=== PATIENT | female | born 1975 | race Caucasian/White ===

== ENCOUNTER → 2017-07-10 13:49 | Emergency (ER) | payer SELFPAY | END | disposition left against medical advice (07) | LOC: ED 13:49 | DX: R42 Dizziness and giddiness (principal) ==

== ENCOUNTER 2017-10-25 20:17 | Emergency (ER) | payer BC ==
[2017-10-25 20:39] VITALS: BP 115/73
[2017-10-25] MEDS ORDERED: Cephalexin CAP* 500 MG PO ONE ×2 (20:57)
--- NOTE | 2017-10-25 21:00 | UC ---
Breast Complaint - HPI Summary HPI Summary: 42 yo female with right breast pain and swelling that started today currently on period and not breast feeding recently treated for UTI some mild back pain and nausea no UTI symptoms currently no chills - History of Current Complaint Hx Obtained From: Patient Breast Chief Complaint: Pain, Right Onset/Duration: Started Hours Ago Timing: Constant Breast Pain Radiates To: Right, Axilla Breast Pain Aggravating Factors: Palpation Breast Pain Alleviating Factors: Heat Breast Associated Signs/Symptoms: Redness, Warmth - Allergy/Home Medications Allergies/Adverse Reactions: Allergies Allergy/AdvReac Type Severity Reaction Status Date / Time latex Allergy Rash Verified 10/25/17 20:51 Sulfa (Sulfonamide Allergy Rash Verified 10/25/17 20:51 Antibiotics) Home Medications: Home Medications Aspirin [Aspirin Childrens 81 MG] 81 mg PO DAILY 10/25/17 [History Confirmed ] PMH/Surg Hx/FS Hx/Imm Hx Previously Healthy: Yes - mastitis in past - Surgical History Surgical History: None - Family History Known Family History: Positive: Hypertension - Social History Alcohol Use: Occasionally Substance Use Type: None Smoking Status (MU): Former Smoker Review of Systems Constitutional: Negative Skin: Negative Eyes: Negative ENT: Negative Respiratory: Negative Cardiovascular: Negative Gastrointestinal: Negative Genitourinary: Negative Motor: Negative Neurovascular: Negative Musculoskeletal: Negative Neurological: Negative Psychological: Negative Is Patient Immunocompromised?: No All Other Systems Reviewed And Are Negative: Yes Physical Exam Triage Information Reviewed: Yes Appearance: Well-Appearing, No Pain Distress, Well-Nourished Vital Signs: Initial Vital Signs Temp 98.6 F 10/25/17 20:31 Pulse 83 10/25/17 20:31 Resp 18 10/25/17 20:31 BP 115/73 10/25/17 20:31 Pulse Ox 97 10/25/17 20:31 Vital Signs Reviewed: Yes Eyes: Positive: Conjunctiva Clear ENT: Positive: Hearing grossly normal. Negative: Nasal congestion, Nasal drainage, Trismus, Muffled voice, Hoarse voice Dental Exam: Normal Neck: Positive: Supple, Nontender, No Lymphadenopathy Respiratory: Positive: Lungs clear, Normal breath sounds, No respiratory distress, No accessory muscle use Cardiovascular: Positive: RRR, No Murmur Abdomen Description: Positive: Nontender, No Organomegaly. Negative: CVA Tenderness (R), CVA Tenderness (L) Bowel Sounds: Positive: Present Musculoskeletal: Positive: ROM Intact, No Edema Neurological: Positive: Alert Psychological Exam: Normal Skin Exam: Other - see image Breast Pain Course/Dx - Differential Diagnoses Differential Diagnosis/HQI/PQRI: Mastitis - Diagnoses Provider Diagnoses: Mastitis in female Discharge - Sign-Out/Discharge Documenting (check all that apply): Discharge/Admit/Transfer - Discharge Plan Condition: Stable Disposition: HOME Prescriptions: Cephalexin CAP* [Keflex CAP*] 500 mg PO QID #28 cap Patient Education Materials: Mastitis (ED) Referrals: Delia Severino MD [Primary Care Provider] - 2 Days Additional Instructions: RECHECK FOR NEW OR WORSENING SYMPTOMS HEAT ANY CONCERNS OF AN ABSCESS (BOIL) ...get rechecked - Billing Disposition and Condition Condition: STABLE Disposition: HOME Images Front/Back of Body, Lg (Upson): 1 - red/indurated, no nipple d/c, not flutuant, no axillary adenopathy
== END 2017-10-25 21:15 | disposition home or self-care (01) ==
LOC: UCEAST 20:17
DX: N61.0 Mastitis without abscess (principal); M54.9 Dorsalgia, unspecified; R11.0 Nausea; Z87.440 Personal history of urinary (tract) infections; Z88.2 Allergy status to sulfonamides; Z91.040 Latex allergy status; Z87.891 Personal history of nicotine dependence
CPT/HCPCS: 81003; 99212; A9270-GY; G0463

== ENCOUNTER 2017-12-08 10:32 | Emergency (ER) | payer BC ==
[2017-12-08] MEDS ORDERED: Famotidine TAB* 20 MG PO ONE (10:47)
[2017-12-08] MEDS ORDERED: Al Hydrox/Mg Hydrox/Simet LIQ* 30 ML UDC PO ONE (10:47)
[2017-12-08] MEDS ORDERED: Metoprolol Tartrate IV* 1 MG/ML 5 ML VIAL IV ONE (10:58)
[2017-12-08] MEDS ORDERED: Aspirin 81 mg CHEW TAB* 81 MG TAB.CHEW PO ONE (10:58)
[2017-12-08 11:25] LABS: ABS Basophils 0 10^3/ul (0-0.2); ABS Eosinophils 0.1 10^3/ul (0-0.6); ABS Lymphocytes 1.7 10^3/ul (1.0-4.8); ABS Monocytes 0.8 10^3/ul (0-0.8); ABS Neutrophils 3.3 10^3/ul (1.5-7.7); ABS Nucleated RBC 0 10^3/ul; Eosinophil % 1.3 % (0-6); Hematocrit 39 % (35-47); Hemoglobin 13.2 g/dl (12.0-16.0); Lymphocyte % 28.4 % (25-47); Mean Corpuscular HGB Conc 34 g/dl (31-36); Mean Corpuscular Hemoglobin 31 pg (27-31); Mean Corpuscular Volume 92 fL (80-97); Mean Platelet Volume 8.3 um3 (7.4-10.4); Nucleated Red Blood Cells % 0; Platelet Count 217 10^3/ul (150-450); Red Blood Count 4.26 10^6/ul (4.00-5.40); Red Cell Distribution Width 14 % (10.5-15); White Blood Count 5.9 10^3/ul (3.5-10.8)
--- NOTE | 2017-12-08 12:13 | RAD ---
HISTORY: Chest pain COMPARISONS: None VIEWS: 1: frontal portable view of the chest at 11:57 AM FINDINGS: LINES AND TUBES: None. CARDIOMEDIASTINAL SILHOUETTE: The cardiomediastinal silhouette is normal for portable technique. PLEURA: The costophrenic angles are sharp. No pleural abnormalities are noted. LUNG PARENCHYMA: The lungs are clear. ABDOMEN: The upper abdomen is clear. There is no subphrenic gas. BONES AND SOFT TISSUES: No bone or soft tissue abnormalities are noted. IMPRESSION: NO ACTIVE CARDIOPULMONARY DISEASE.
[2017-12-08 13:17] VITALS: BP 104/66
--- NOTE | 2017-12-08 17:36 | ED ---
Paolo Nails Tenzin, scribed for Scottie Morales MD on 12/08/17 at 1115 . Upper Extremity Pain - HPI Summary HPI Summary: Pt is a 42 years old female presenting to the ED complaining of fast racing heart beat this morning. Pt notes that she had a redbull at 0900 and after 20 mins she notes that I had a racing heart. Pt notes that she went to bed at normal baseline without any heart race. She also adds that she is normally bradycardia. Pt denies fever, no pain in legs, swelling in legs, no injury from running the past, SOB, abd pain, heart burn or reflux, skip beats or extra beats, dysuria, hematuria, no pain in the neck and jaw. Pt reports that she had palpitations 3 weeks ago and went to see a doctor. Pt is also complaining of dizziness and anxiety. Pt notes she felt that the chest has been feeling tighter. Pt reports that having her head down seem to aggravate the pain. No alleviating factors were noted. LNMP: a month ago. Pt is physically very active and notes that she does cycling, running and trail running. She is a non-smoker. Pt had holter test done two days ago. Pt has PMHX : Patent Foramen Ovale, TIA in 2009. - History of Current Complaint Chief Complaint: EDChestPainROMI Stated Complaint: CHEST PRESSURE,DIZZINESS Time Seen by Provider: 12/08/17 10:46 Hx Obtained From: Patient Hx Last Menstrual Period: 10/25/17 Onset/Duration: Started Hours Ago - AT 0920 Aggravating Factor(s): Other - having her head down. Alleviating Factor(s): Nothing - Allergies/Home Medications Allergies/Adverse Reactions: Allergies Allergy/AdvReac Type Severity Reaction Status Date / Time latex Allergy Rash Verified 12/08/17 11:05 Sulfa (Sulfonamide Allergy Rash Verified 12/08/17 11:05 Antibiotics) PMH/Surg Hx/FS Hx/Imm Hx Endocrine/Hematology History: Denies: Hx Diabetes, Hx Thyroid Disease Cardiovascular History: Denies: Hx Hypercholesterolemia, Hx Hypertension, Hx Pacemaker/ICD, Hx Peripheral Vascular Disease Musculoskeletal History: Denies: Hx Arthritis, Hx Rheumatoid Arthritis, Hx Osteoporosis Sensory History: Denies: Hx Cataracts, Hx Contacts or Glasses, Hx Glaucoma, Hx Hearing Aid Opthamlomology History: Denies: Hx Cataracts, Hx Contacts or Glasses, Hx Glaucoma Neurological History: Denies: Hx Headaches, Hx Seizures, Hx Transient Ischemic Attacks (TIA) Psychiatric History: Denies: Hx Anxiety, Hx Depression, Hx Panic Disorder Infectious Disease History: No Infectious Disease History: Denies: Traveled Outside the [place] in Last 30 Days - Family History Known Family History: Positive: Hypertension - Social History Alcohol Use: Occasionally Substance Use Type: Reports: None Smoking Status (MU): Former Smoker Review of Systems Negative: Fever Positive: Palpitations, Chest Pain - Tightness Negative: Shortness Of Breath Positive: Other - dizziness.. Negative: Abdominal Pain Negative: dysuria, hematuria Positive: Other - Negative pain in legs.. Negative: Edema Positive: Anxious All Other Systems Reviewed And Are Negative: Yes Physical Exam - Summary Physical Exam Summary: Appearance: Well appearing, mildly distress, mildly anxious. Skin: warm, dry, reflects adequate perfusion Head/face: normal Eyes: EOMI, JACLYN ENT: normal Neck: supple, non-tender Respiratory: CTA, breath sounds present Cardiovascular: RRR, pulses symmetrical Abdomen: non-tender, soft Bowel Sounds: present Musculoskeletal: normal, strength/ROM intact Neuro: normal, sensory motor intact, A&Ox3 Triage Information Reviewed: Yes Vital Signs On Initial Exam: Initial Vitals Temp Pulse Resp BP Pulse Ox 98.9 F 68 14 118/79 100 12/08/17 10:35 12/08/17 10:35 12/08/17 10:35 12/08/17 10:35 12/08/17 10:35 Vital Signs Reviewed: Yes Diagnostics - Vital Signs Vital Signs Temp Pulse Resp BP Pulse Ox 12/08/17 10:35 98.9 F 68 14 118/79 100 - Laboratory Lab Results: Lab Results 12/08/17 12/08/17 12/08/17 Range/Units 11:07 11:07 11:07 WBC 5.9 (3.5-10.8) 10^3/ul RBC 4.26 (4.00-5.40) 10^6/ul Hgb 13.2 (12.0-16.0) g/dl Hct 39 (35-47) % MCV 92 (80-97) fL MCH 31 (27-31) pg MCHC 34 (31-36) g/dl RDW 14 (10.5-15) % Plt Count 217 (150-450) 10^3/ul MPV 8.3 (7.4-10.4) um3 Neut % (Auto) 55.7 (38-83) % Lymph % (Auto) 28.4 (25-47) % Morris % (Auto) 13.9 H (0-7) % Eos % (Auto) 1.3 (0-6) % Baso % (Auto) 0.7 (0-2) % Absolute Neuts (auto) 3.3 (1.5-7.7) 10^3/ul Absolute Lymphs (auto) 1.7 (1.0-4.8) 10^3/ul Absolute Monos (auto) 0.8 (0-0.8) 10^3/ul Absolute Eos (auto) 0.1 (0-0.6) 10^3/ul Absolute Basos (auto) 0 (0-0.2) 10^3/ul Absolute Nucleated RBC 0 10^3/ul Nucleated RBC % 0 D-Dimer, Quantitative (Less Than 230) ng/mL Sodium 139 (135-145) mmol/L Potassium 3.8 (3.5-5.0) mmol/L Chloride 108 (101-111) mmol/L Carbon Dioxide 22 (22-32) mmol/L Anion Gap 9 (2-11) mmol/L BUN 21 (6-24) mg/dL Creatinine 1.17 H (0.51-0.95) mg/dL Est GFR ( Amer) 61.7 (>60) Est GFR (Non-Af Amer) 51.0 (>60) BUN/Creatinine Ratio 17.9 (8-20) Glucose 114 H (70-100) mg/dL Lactic Acid 1.3 (0.5-2.0) mmol/L Calcium 9.1 (8.6-10.3) mg/dL Total Bilirubin 0.50 (0.2-1.0) mg/dL AST 22 (13-39) U/L ALT 15 (7-52) U/L Alkaline Phosphatase 33 L (34-104) U/L Total Creatine Kinase 178 (10-223) U/L Troponin I 0.00 (<0.04) ng/mL Total Protein 6.4 (6.4-8.9) g/dL Albumin 4.0 (3.2-5.2) g/dL Globulin 2.4 (2-4) g/dL Albumin/Globulin Ratio 1.7 (1-3) Beta HCG, Quant < 0.60 mIU/mL 12/08/17 Range/Units 11:07 WBC (3.5-10.8) 10^3/ul RBC (4.00-5.40) 10^6/ul Hgb (12.0-16.0) g/dl Hct (35-47) % MCV (80-97) fL MCH (27-31) pg MCHC (31-36) g/dl RDW (10.5-15) % Plt Count (150-450) 10^3/ul MPV (7.4-10.4) um3 Neut % (Auto) (38-83) % Lymph % (Auto) (25-47) % Morris % (Auto) (0-7) % Eos % (Auto) (0-6) % Baso % (Auto) (0-2) % Absolute Neuts (auto) (1.5-7.7) 10^3/ul Absolute Lymphs (auto) (1.0-4.8) 10^3/ul Absolute Monos (auto) (0-0.8) 10^3/ul Absolute Eos (auto) (0-0.6) 10^3/ul Absolute Basos (auto) (0-0.2) 10^3/ul Absolute Nucleated RBC 10^3/ul Nucleated RBC % D-Dimer, Quantitative < 200 (Less Than 230) ng/mL Sodium (135-145) mmol/L Potassium (3.5-5.0) mmol/L Chloride (101-111) mmol/L Carbon Dioxide (22-32) mmol/L Anion Gap (2-11) mmol/L BUN (6-24) mg/dL Creatinine (0.51-0.95) mg/dL Est GFR ( Amer) (>60) Est GFR (Non-Af Amer) (>60) BUN/Creatinine Ratio (8-20) Glucose (70-100) mg/dL Lactic Acid (0.5-2.0) mmol/L Calcium (8.6-10.3) mg/dL Total Bilirubin (0.2-1.0) mg/dL AST (13-39) U/L ALT (7-52) U/L Alkaline Phosphatase (34-104) U/L Total Creatine Kinase (10-223) U/L Troponin I (<0.04) ng/mL Total Protein (6.4-8.9) g/dL Albumin (3.2-5.2) g/dL Globulin (2-4) g/dL Albumin/Globulin Ratio (1-3) Beta HCG, Quant mIU/mL Result Diagrams: 12/08/17 11:07 12/08/17 11:07 Lab Statement: Any lab studies that have been ordered have been reviewed, and results considered in the medical decision making process. - Radiology CHEST X RAY Radiology Interpretation Completed By: Radiologist - IMPRESSION: NO ACTIVE CARDIOPULMONARY DISEASE. - EKG 10:37 Cardiac Rate: NL - at [address] Segment: Normal EKG Interpretation: Normal axis. Re-Evaluation - Re-Evaluation First Eval Change: Improved Comment: Pt reports that she feels better and the symptoms are gone. Course/Dx - Course Course Of Treatment: Patient with an abrupt onset of palpitations and a chest tightness after drinking red bull. She is a avid runner/athlete and has a resting heart rate normally in the 40s and 50s. On presentation, her heart rate is in the high 60s and low 70s. There are no ectopic beats or arrhythmia. She was given a dose of beta josé and also treated for possible GI disease. Her symptoms resolved following this. She recently had a Holter monitor placed and will follow the results up with her private care physician. If necessary, she is instructed to have an event monitor placed. Likely, this is not heart related rather GI or other noncardiac cause. - Diagnoses Differential Diagnosis/HQI/PQRI: Positive: Other - palpitations to include ectopy/arrthymia, ischemia, GI, PE, pnuemonia, anxiety. Provider Diagnoses: Atypical chest pain, Palpitations, GERD (gastroesophageal reflux disease) Discharge - Sign-Out/Discharge Documenting (check all that apply): Discharge/Admit/Transfer - Discharge - Discharge Plan Condition: Improved Disposition: HOME Prescriptions: Famotidine TAB* [Pepcid 20 MG TAB*] 20 mg PO BID #20 tab Sucralfate TAB* [Carafate*] 1 gm PO QID #40 tab Patient Education Materials: Chest Pain (ED), Gastroesophageal Reflux Disease ( ED) Referrals: Delia Severino MD [Primary Care Provider] - 3 Days Additional Instructions: Call today to follow-up Holter monitor results with your doctor. Avoid any caffeine, spicy foods, alcohol or anti-inflammatory medications. Discuss obtaining an event monitor if Holter monitor is negative. Return if worse, persistent symptoms, alteration in heart rate or rhythm, new symptoms or other concerns. - Billing Disposition and Condition Condition: STABLE Disposition: Home The documentation as recorded by the Paolo blackmon Tenzin accurately reflects the service I personally performed and the decisions made by , Scottie Morales MD.
== END 2017-12-08 13:16 | disposition home or self-care (01) ==
LOC: ED 10:32
DX: R07.89 Other chest pain (principal); R00.2 Palpitations; K21.9 Gastro-esophageal reflux disease without esophagitis; Z86.73 Personal history of transient ischemic attack (TIA), and cerebral infarction without residual deficits; Z87.891 Personal history of nicotine dependence; Z88.2 Allergy status to sulfonamides
CPT/HCPCS: 36415; 71045; 80053; 82550; 83605; 84484; 84702; 85025; 85379; 93005; 96374; 99283; A9270-GY; J3490

== ENCOUNTER 2018-05-22 11:05 | Emergency (ER) | payer BC ==
--- OUTSIDE RECORDS SUMMARY | 2018-05-22 11:23 | XMS REPORT | Continuity of Care Document ---
:1975 External Reference #:[id number] Author Name Shelli Rendon Care Team Providers Name Role Phone Delia Severino MD Primary Care Physician Unavailable Payers Type Date Identification Numbers Payment Provider Subscriber Effective: Policy Number: [id number] [employer] Evno Moody 2011 PayID: [id number] [address] [address] [place] [address] Advance Directives Description No Information Available Problems Date Description Provider Status Onset: 02/12/2018 Ostium secundum type atrial septal defect Claudette Truong M.D. 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 Allergies, Adverse Reactions, Alerts Date Description Reaction Status Severity Comments 09/02/2013 Sulfa Antibiotics Active 09/09/2013 Latex Active Medications Medication Date Status Form Strength Qnty SIG Indications Ordering Provider Aspirin Adult [address] 81mg 1 by Unknown Low Dose 00 mouth every day No Active 09/03/19 Hx Unknown Medications 14 - 05/20/20 18 Immunizations Description No Information Available Vital Signs Date Vital Result Comment 05/20/2018 1:32pm Height 67 inches 5'7" Weight 159.00 lb BP Systolic 110 mmHg BP Diastolic 74 mmHg Respiratory Rate 15 /min Body Temperature 97.8 F Pain Level 3 BMI (Body Mass Index) 24.9 kg/m2 02/12/2018 2:19pm Height 67 inches 5'7" Weight 160.00 lb with shoes BP Systolic 150 mmHg Rue reg cuff BP Diastolic 80 mmHg Rue reg cuff BP Systolic Sitting 152 mmHg Rue reg cuff BP Diastolic Sitting 88 mmHg Rue reg cuff BP Systolic Standing 154 mmHg Lue reg cuff BP Diastolic Standing 90 mmHg Lue reg cuff BMI (Body Mass Index) 25.1 kg/m2 09/09/2013 8:37am Height 67 inches 5'7" Weight 150.00 lb Heart Rate 62 /min BP Systolic 110 mmHg BP Diastolic 74 mmHg BMI (Body Mass Index) 23.5 kg/m2 09/02/2013 1:57pm Height 67 inches 5'7" Weight 150.00 lb Heart Rate 60 /min BMI (Body Mass Index) 23.5 kg/m2 Results Description No Information Available Procedures Date Code Description Status 02/12/2018 60470 EKG Tracing & Interpretation Completed 12/08/2017 78076 Holter Monitor Review (24 hr)dr review & interp only Completed 12/05/2017 11133 ECG Monitor/Recording W/Visual Superimposition Scanning Completed 09/02/2013 19482 FX Patella Care Completed 04/02/2010 39342 Color Flow Doppler/Interp & Reprt Completed 04/02/2010 61141 Pulse Wave/Continuous-Interp.RPT Completed 04/02/2010 72557 Echocardiogram Completed 04/02/2010 55970 ECHO Transthorasic Realtime 2D W Doppler & Color Flow Hosp Completed Encounters Type Date Location Provider Dx Diagnosis Office Visit 02/12/2018 [facility] Claudette Truong, Q21.1 Atrial 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 M.D. 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 M.D. 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 at [facility]05/20/2018 - Melodie Orestesjeanette, [facility]-[phone] Nondisplaced fracture of proximal phalanx of right ring fingFollow up:Follow up: 62.642A Nondisplaced fracture of proximal phalanx of right middle fi
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
[2018-05-22 12:20] LABS: ABS Basophils 0.1 10^3/ul (0-0.2); ABS Eosinophils 0 10^3/ul (0-0.6); ABS Lymphocytes 1.3 10^3/ul (1.0-4.8); ABS Monocytes 0.7 10^3/ul (0-0.8); ABS Neutrophils 3.9 10^3/ul (1.5-7.7); ABS Nucleated RBC 0 10^3/ul; Eosinophil % 0.7 %; Hematocrit 41 % (35-47); Hemoglobin 13.9 g/dl (12.0-16.0); Lymphocyte % 21.6 %; Mean Corpuscular HGB Conc 34 g/dl (31-36); Mean Corpuscular Hemoglobin 32 pg (27-31); Mean Corpuscular Volume 93 fL (80-97); Mean Platelet Volume 7.9 fL (7.4-10.4); Nucleated Red Blood Cells % 0; Platelet Count 231 10^3/ul (150-450); Red Blood Count 4.38 10^6/ul (4.00-5.40); Red Cell Distribution Width 13 % (10.5-15); White Blood Count 5.9 10^3/ul (3.5-10.8)
[2018-05-22 13:28] VITALS: BP 108/72
== END 2018-05-22 13:27 | disposition home or self-care (01) ==
LOC: ED 11:05
DX: R07.89 Other chest pain (principal); R00.1 Bradycardia, unspecified; Z88.2 Allergy status to sulfonamides; Z91.040 Latex allergy status; Z82.49 Family history of ischemic heart disease and other diseases of the circulatory system; Z83.2 Family history of diseases of the blood and blood-forming organs and certain disorders involving the immune mechanism
CPT/HCPCS: 36415; 71046; 80048; 84484; 85025; 85379; 93005; 99282

== ENCOUNTER 2018-06-27 11:10 | Emergency (ER) | payer BC ==
--- OUTSIDE RECORDS SUMMARY | 2018-06-27 11:25 | XMS REPORT | Continuity of Care Document ---
:1975 External Reference #:[id number] Author Name Shelli Rendon Care Team Providers Name Role Phone Delia Severino MD Primary Care Physician Unavailable Payers Type Date Identification Numbers Payment Provider Subscriber Effective: Policy Number: [id number] [employer] Evon Moody 2011 PayID: [id number] [address] [address] [place] [address] Advance Directives Description No Information Available Problems [...] Use Denies Drug Use Smoking Status Reviewed: 06/11/18 Patient is a former smoker Exercise Type/Frequency Exercises regularly treadmill , bicycling, capo . Allergies, Adverse Reactions, Alerts Date Description Reaction Status Severity Comments 09/02/2013 Sulfa Antibiotics Active 09/09/2013 Latex Active Medications Medication Date Status Form Strength Qnty SIG Indications Ordering Provider Keflex Active Capsules 500mg 20caps 1 tab Berna 019 by Clayton Echeverria mouth four times a day for 5 days Aspirin Adult Active Tablets DR 81mg 1 by Unknown Low Dose 000 mouth every day No Active Hx Unknown Medications 014 - 018 Immunizations Description No Information Available Vital Signs Date Vital Result Comment 06/11/2018 2:18pm Height 67 inches 5'7" Heart Rate 56 /min BP Systolic Sitting 108 mmHg BP Diastolic Sitting 82 mmHg Respiratory Rate 16 /min Body Temperature 97.3 F Pain Level 3 05/20/2018 1:32pm Height 67 inches 5'7" Weight [...] BMI (Body Mass Index) 23.5 kg/m2 Results Test Date Facility Test Result H/L Range Note Order 06/10/2018 [facility] Echocardiogram <pending > [facility] [place] [address] [phone] Procedures Date Code Description Status 06/10/2018 65261 ECHO Transthoracic, Real-Time 2D With Doppler And Color Completed Flow 02/12/2018 62496 EKG Tracing & Interpretation Completed 12/08/2017 39023 Holter Monitor Review (24 hr)dr review & interp only Completed 12/05/2017 94220 ECG Monitor/Recording W/Visual Superimposition Scanning Completed 09/02/2013 58685 FX Patella Care Completed 04/02/2010 27625 Color Flow Doppler/Interp & Reprt Completed 04/02/2010 88306 Pulse Wave/Continuous-Interp.RPT Completed 04/02/2010 62029 Echocardiogram Completed 04/02/2010 15270 ECHO Transthorasic Realtime 2D W Doppler & Color Flow Hosp Completed Encounters Type Date Location Provider Dx Diagnosis Office Visit 05/20/2018 [facility], S62.644A Nondisp fx of 1:[facility] proximal phalanx of right ring finger, init S62.642A Nondisp fx of proximal phalanx of right middle finger, init Office Visit 02/12/2018 2:10p [facility] Claudette Truong, Q21.1 Atrial septal Of Format Proofreader M.D. 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 at [facility]
--- NOTE | 2018-06-27 12:07 | ED ---
Lower Extremity - HPI Summary HPI Summary: This patient is a 43 year old F presenting [place] [facility] accompanied with a chief complaint of a lower extremity injury [employer]. She states she was running during a workout and her right knee twisted the wrong way. She took 800 mg of ibuprofen 2 hours ago. The patient rates the pain 5/10 in severity. She has not attempted to ambulate as a precaution. She states she does not feel she can put weight on the knee. - History of Current Complaint Chief Complaint: EDExtremityLower Stated Complaint: RIGHT KNEE INJURY Time Seen by Provider: 06/27/18 11:45 Hx Obtained From: Patient Hx Last Menstrual Period: 10/25/17 Mechanism Of Injury: Twisted Onset of Pain: Prior to Arrival Onset/Duration: Hours Severity Initially: Mild Severity Currently: Mild Pain Intensity: 5 Pain Scale Used: 0-10 Numeric Location: Is Discrete @ - right knee Associated Signs And Symptoms: Positive: Knee Pain - Allergies/Home Medications Allergies/Adverse Reactions: Allergies Allergy/AdvReac Type Severity Reaction Status Date / Time latex Allergy Rash Verified 06/27/18 11:16 Sulfa (Sulfonamide Allergy Rash Verified 06/27/18 11:16 Antibiotics) PMH/Surg Hx/FS Hx/Imm Hx Endocrine/Hematology History: Denies: Hx Diabetes, Hx Thyroid Disease Cardiovascular History: Reports: Other Cardiovascular Problems/Disorders - 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 , PFO Denies: Hx Hypercholesterolemia, Hx Hypertension, Hx Pacemaker/ICD, Hx Peripheral Vascular Disease History: Denies: Hx Renal Disease Musculoskeletal History: Denies: Hx Arthritis, Hx Rheumatoid Arthritis, Hx Osteoporosis Sensory History: Denies: Hx Cataracts, Hx Contacts or Glasses, Hx Glaucoma, Hx Hearing Aid Opthamlomology History: Denies: Hx Cataracts, Hx Contacts or Glasses, Hx Glaucoma Neurological History: Denies: Hx Headaches, Hx Seizures, Hx Transient Ischemic Attacks (TIA) Psychiatric History: Denies: Hx Anxiety, Hx Depression, Hx Panic Disorder Infectious Disease History: No Infectious Disease History: Denies: Traveled Outside the [place] in Last 30 Days - Family History Known Family History: Positive: Cardiac Disease, Hypertension, Blood Disorder - blood clot - Social History Alcohol Use: Occasionally Hx Substance Use: No Substance Use Type: Reports: None Hx Tobacco Use: Yes Smoking Status (MU): Former Smoker Review of Systems Negative: Fever Positive: Arthralgia - Right knee pain All Other Systems Reviewed And Are Negative: Yes Physical Exam - Summary Physical Exam Summary: GENERAL: Patient is a well-developed and nourished F who is lying comfortable in the stretcher. Patient is not in any acute respiratory distress. HEAD AND FACE: Normocephalic EYES: PERRLA, EOMI x 2. EARS: Hearing grossly intact. MOUTH: Oropharynx within normal limits. NECK: Supple, trachea is midline, no adenopathy, no JVD, no carotid bruit. CHEST: Symmetric, no tenderness at palpation LUNGS: Clear to auscultation bilaterally. No wheezing or crackles. CVS: Regular rate and rhythm, S1 and S2 present, no murmurs or gallops appreciated. ABDOMEN: Soft, non-tender. Bowel sounds are normal. No abdominal abnormal pulsations. EXTREMITIES: Full ROM in all major joints, no edema, no cyanosis or clubbing. Tender in the medial aspect of the right knee joint. NEURO: Alert and oriented x 3. No acute neurological deficits. Speech is normal and follows commands. SKIN: Dry and warm Triage Information Reviewed: Yes Vital Signs On Initial Exam: Initial Vitals Temp Pulse Resp BP Pulse Ox 97.5 F 57 16 110/78 100 06/27/18 11:13 06/27/18 11:13 06/27/18 11:13 06/27/18 11:13 06/27/18 11:13 Vital Signs Reviewed: Yes Diagnostics - Vital Signs Vital Signs Temp Pulse Resp BP Pulse Ox 06/27/18 11:13 97.5 F 57 16 110/78 100 - Laboratory Lab Statement: Any lab studies that have been ordered have been reviewed, and results considered in the medical decision making process. - Radiology Knee XR Radiology Interpretation Completed By: Radiologist Summary of Radiographic Findings: No acute osseous injury. If symptoms persis, recommend repeat imaging. ED Provider has reviewed this report. Re-Evaluation - Re-Evaluation First Eval Re-Evaluation Time: 13:08 Change: Unchanged Comment: Discussed XRay results and plan for discharge. Lower Extremity Course/Dx - Course Course Of Treatment: This patient is a 43 year old F presenting to [facility] accompanied with a chief complaint of a lower extremity injury [employer]. She states she was running during a workout and her right knee twisted the wrong way. Knee XR was unremarkable for knee fracture. Pt will be discharged and referred to orthopedics for further testing if symptoms persist and is given ctrutches. I discussed results with patient and she reports feeling better. She is hemodynamically stable and safe for discharge. Strict return precautions given and she will otherwise follow up with her PCP. The patient is agreeable with this plan. - Diagnoses Provider Diagnoses: Right knee sprain Discharge - Sign-Out/Discharge Documenting (check all that apply): Patient Departure - Discharge - Discharge Plan Condition: Stable Disposition: HOME Patient Education Materials: Knee Sprain (ED) Referrals: [facility] [Provider Group] Additional Instructions: Return with any new or worsening symptoms. Follow-up with training and documentation specialist within 3-5 days. - Billing Disposition and Condition Condition: STABLE Disposition: Home - Attestation Statements Document Initiated by Michael: Yes Documenting Scribe: Maikel Nuñez Provider For Whom Michael is Documenting (Include Credential): Cary Guerra MD Scribe Attestation: Maikel Nails scribed for Cary Guerra MD on 06/28/18 at 1044. Scribe Documentation Reviewed: Yes Provider Attestation: The documentation as recorded by the scribMaikel brooks accurately reflects the service I personally performed and the decisions made by , Shelley Guerra MD Status of Scribe Document: Viewed
[2018-06-27 14:06] VITALS: BP 121/80
== END 2018-06-27 14:04 | disposition home or self-care (01) ==
LOC: ED 11:10
DX: S83.91XA Sprain of unspecified site of right knee, initial encounter (principal); X50.1XXA Overexertion from prolonged static or awkward postures, initial encounter; Y93.02 Activity, running; Y92.9 Unspecified place or not applicable; Z88.2 Allergy status to sulfonamides; Q21.1 Atrial septal defect; Z87.891 Personal history of nicotine dependence
CPT/HCPCS: 99282

== ENCOUNTER 2018-08-03 10:20 | Observation (INO) | payer BC ==
--- NOTE | 2018-08-03 10:45 | ED ---
Neurological HPI - HPI Summary HPI Summary: Patient is a 43 y/o F presenting to ED with complaints of right sided facial and right arm numbness, blurred vision and dizziness onsetting 1000 yesterday morning. Sx have been constant since onset. Provider in room at 1038, NIH started at 1040. She denies double vision, headaches, seeing flashing lights, difficulty with ambulation, abnormal gait. No Hx of migraines. PMHx of TIA in 2009, patient states that the theory is that she developed a superficial venous thrombosis at her shoulder due to pressure from a hiking backpack strap and this clot subsequently travelled to her brain. Patient had meniscus and ACL repair surgery done four days ago, patient has hardware in right leg. No SOB, no chest pain, no neck pain is reported. Patient is followed by Dr. Truong for PFO. PMHx of anxiety, patient notes some anxiety due to Sx. She is on ASA and Tylenol, Vitamin C, D supplements. Patient drinks wine rarely, does not smoke cigarettes. LNMP was 07/20/18. Fever, chills, erythema of eyes, sore throat, cough, abdominal pain, vomiting, nausea, dysuria, hematuria, myalgia, edema, rash are not reported. On triage, pain is rated 0/10, nothing is noted to aggravate/alleviate Sx, patient took Tylenol this morning for knee pain. Home medications and allergies are reviewed. - History of Current Complaint Stated Complaint: NUMBNESS RIGHT SIDE OF FACE/ARM Time Seen by Provider: 08/03/18 10:32 Hx Obtained From: Patient Hx Last Menstrual Period: 10/25/17 Onset/Duration: Started days ago - ONSET YESTERDAY 1000, Still Present Timing: Constant Current Severity: Severe - PAIN DENIED Neurological Deficit Location: Facial - RIGHT, RUE Pain Intensity: 0 Pain Scale Used: 0-10 Numeric - 0/10 Character: Dizzy, Numbness/Tingling - RIGHT, Other: - denies double vision, headaches, seeing flashing lights, difficulty with ambulation, abnormal gait. Aggravating: Nothing Alleviating: Nothing Associated Signs and Symptoms: Positive: Visual Changes - blurred vision, Dizziness, Numbness - right arm, right face, Anxiety. Negative: Unsteady Gait, Headache, Impaired Speech, Nausea/Vomiting, Fever, Neck Pain/Stiffness, Chest Pain, Shortness of Breath - Allergy/Home Medications Allergies/Adverse Reactions: Allergies Allergy/AdvReac Type Severity Reaction Status Date / Time latex Allergy Rash Verified 08/03/18 10:36 Sulfa (Sulfonamide Allergy Rash Verified 08/03/18 10:36 Antibiotics) Home Medications: Home Medications Acetaminophen [Acetaminophen Extra Strength] 500 mg PO Q6HR PRN 08/03/18 [ History Confirmed 08/03/18] PMH/Surg Hx/FS Hx/Imm Hx Endocrine/Hematology History: Denies: Hx Diabetes, Hx Thyroid Disease Cardiovascular History: Reports: Other Cardiovascular Problems/Disorders - 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 , PFO Denies: Hx Hypercholesterolemia, Hx Hypertension, Hx Pacemaker/ICD, Hx Peripheral Vascular Disease History: Denies: Hx Renal Disease Musculoskeletal History: Denies: Hx Arthritis, Hx Rheumatoid Arthritis, Hx Osteoporosis Sensory History: Denies: Hx Cataracts, Hx Contacts or Glasses, Hx Glaucoma, Hx Hearing Aid Opthamlomology History: Denies: Hx Cataracts, Hx Contacts or Glasses, Hx Glaucoma Neurological History: Reports: Hx Transient Ischemic Attacks (TIA) Denies: Hx Headaches, Hx Seizures Psychiatric History: Denies: Hx Anxiety, Hx Depression, Hx Panic Disorder Infectious Disease History: No Infectious Disease History: Denies: Traveled Outside the [place] in Last 30 Days - Family History Known Family History: Positive: Cardiac Disease, Hypertension, Blood Disorder - blood clot - Social History Alcohol Use: Occasionally Hx Substance Use: No Substance Use Type: Reports: None Hx Tobacco Use: Yes Smoking Status (MU): Former Smoker Review of Systems Negative: Fever, Chills Eyes: Other - NEGATIVE - SEEING FLASHING LIGHTS Positive: Blurred Vision - no double vision . Negative: Erythema Negative: Sore Throat Negative: Chest Pain Negative: Shortness Of Breath, Cough Negative: Abdominal Pain, Vomiting, Nausea Negative: dysuria, hematuria Musculoskeletal: Other - NEGATIVE - NECK PAIN Negative: Myalgia, Edema Neurological: Other - POSITIVE - DIZZINESS; NEGATIVE - CHANGE IN AMBULATION Positive: Numbness - /tingling of right face and right arm . Negative: Headache , Weakness, Slurred Speech Positive: Anxious All Other Systems Reviewed And Are Negative: Yes Physical Exam - Summary Physical Exam Summary: Constitutional: Well-developed, Well-nourished, Alert. (-) Distressed Skin: Warm, Dry HENT: Normocephalic; Atraumatic Eyes: Conjunctiva normal Neck: Musculoskeletal ROM normal neck. (-) JVD, (-) Stridor, (-) Tracheal deviation Cardio: Rhythm regular, rate normal, Heart sounds normal; Intact distal pulses; The pedal pulses are 2+ and symmetric. Radial pulses are 2+ and symmetric. (-) Murmur Pulmonary/Chest wall: Effort normal. (-) Respiratory distress, (-) Wheezes, (-) Rales Abd: Soft. (-) Tenderness, (-) Distension, (-) Guarding, (-) Rebound Musculoskeletal: (-) Edema Lymph: (-) Cervical adenopathy Neuro: Alert, Oriented x3, Strength normal, Cranial nerves II-XII are grossly intact. (-) Dysmetria, (-) Nystagmus, (-) Ataxia by finger to nose testing. Subjective decreased sensation on right face and right arm, two point discrimination is intact, sharp and dull intact. GCS 15, NIH 1. Psych: Mood and affect Normal Triage Information Reviewed: Yes Vital Signs On Initial Exam: Initial Vitals Temp Pulse Resp BP Pulse Ox 98.8 F 73 18 138/76 100 08/03/18 10:33 08/03/18 10:33 08/03/18 10:33 08/03/18 10:33 08/03/18 10:33 Vital Signs Reviewed: Yes - Tamika Coma Scale Best Eye Response: 4 - Spontaneous Best Motor Response: 6 - Obeys Commands Best Verbal Response: 5 - Oriented Coma Scale Total: 15 Diagnostics - Vital Signs Vital Signs Temp Pulse Resp BP Pulse Ox 08/03/18 10:36 69 21 100 08/03/18 10:35 73 138/76 100 08/03/18 10:33 98.8 F 73 18 138/76 100 - Laboratory Lab Statement: Any lab studies that have been ordered have been reviewed, and results considered in the medical decision making process. - Radiology mri brain Radiology Interpretation Completed By: Radiologist Summary of Radiographic Findings: MRI IMPRESSION: 1. THERE IS NO RESTRICTED DIFFUSION TO SUGGEST ACUTE INFARCT. 2. SMALL FOCUS OF ELEVATED T2/FLAIR SIGNAL WITHIN THE RIGHT PARIETAL PERIVENTRICULAR. WHITE MATTER, WHICH IS LIKELY INCIDENTAL TO THE PRESENTING SYMPTOM OF RIGHT-SIDED. NUMBNESS. THIS IS NONSPECIFIC. SIMILAR FINDINGS CAN BE BE SEEN IN ASSOCIATION WITH. MIGRAINE HEADACHE, AND THE SEQUELA OF PREVIOUS INFECTION OR INFLAMMATION,. CHRONIC. SMALL VESSEL ISCHEMIA AND DEMYELINATING DISEASE IS ALSO WITHIN THE DIFFERENTIAL BUT ARE. CONSIDERED LESS LIKELY IN THE ABSENCE OF THE APPROPRIATE CLINICAL PRESENTATION. FURTHER. EVALUATION SHOULD BE BASED ON CLINICAL CHARACTERISTICS. THIS REPORT WAS REVIEWED BY ED PHYSICIAN. - CT brain ct CT Interpretation Completed By: Radiologist Summary of CT Findings: BRAIN CT IMPRESSION: NO ACUTE INTRACRANIAL PATHOLOGY. THIS REPORT WAS REVIEWED BY ED PHYSICIAN. - EKG 1105 Cardiac Rate: NL - rate of 70 BPM EKG Rhythm: Sinus Rhythm Summary of EKG Findings: EKG showed sinus rhythm with rate of 70 BPM, no STEMI. NIH Scale - NIH Scale Level of Consciousness: Alert/Keenly Responsive Ask Patient the Month and His/Her Age: Both Correct Ask Pt to Open/Close Eyes and Stock Raiser/Release Non-Paretic Hand: Both Correctly Best Gaze (Only Horizontal Eye Movement): Normal Visual Field Testing: No Visual Loss Facial Paresis-Pt to Smile & Close Eyes or Grimace Symmetry: Normal/Symmetrical Motor Function - Right Arm: No Drift-Holds 10 Seconds Motor Function - Left Arm: No Drift-Holds 10 Seconds Motor Function - Right Leg: No Drift-Holds 10 Seconds Motor Function - Left Leg: No Drift-Holds 10 Seconds Limb Ataxia-Must be out of Proportion to Weakness Present: Absent Sensory (Use Pinprick to Test Arms/Legs/Trunk/Face): Pinprick Less on Affected Best Language (Describe Picture, Name Items): No Aphasia Dysarthria (Read Several Words): Normal Extinction and Inattention: No Abnormality Total Score: 1 Course/Dx - Course Course Of Treatment: Patient is a 43 y/o F presenting to ED with complaints of right sided facial and right arm, blurred vision and dizziness onsetting 1000 yesterday morning. Sx have been constant since onset. Provider in room at 1038, NIH started at 1040. She denies double vision, headaches, seeing flashing lights , difficulty with ambulation, abnormal gait. No Hx of migraines. PMHx of TIA in 2009, patient states that the theory is that she developed a superficial venous thrombosis at her shoulder due to pressure from a hiking backpack strap and this subsequently travelled to her brain. Patient had meniscus and ACL repair surgery done four days ago, patient has hardware in right leg. No SOB, no chest pain, no neck pain is reported. Patient is followed by Dr. Dionne for PFO. PMHx of anxiety, patient notes some anxiety due to Sx. She is on ASA and Tylenol, Vitamin C, D. Patient drinks wine rarely, does not smoke cigarettes. LNMP was 07/20/18. On physical exam, subjective decreased sensation on right face and right arm, two point discrimination is intact, sharp and dull intact, GCS 15, NIH 1. EKG showed sinus rhythm with rate of 70 BPM, no STEMI. Labs showed MCH 32, trop 0. During ED course, patient received Palvix 75 mg PO ED ONCE ONE. BRAIN CT IMPRESSION: NO ACUTE INTRACRANIAL PATHOLOGY. MRI IMPRESSION: 1. THERE IS NO RESTRICTED DIFFUSION TO SUGGEST ACUTE INFARCT. 2. SMALL FOCUS OF ELEVATED T2/FLAIR SIGNAL WITHIN THE RIGHT PARIETAL PERIVENTRICULAR. WHITE MATTER, WHICH IS LIKELY INCIDENTAL TO THE PRESENTING SYMPTOM OF RIGHT-SIDED. NUMBNESS. THIS IS NONSPECIFIC. SIMILAR FINDINGS CAN BE BE SEEN IN ASSOCIATION WITH. MIGRAINE HEADACHE, AND THE SEQUELA OF PREVIOUS INFECTION OR INFLAMMATION,. CHRONIC. SMALL VESSEL ISCHEMIA AND DEMYELINATING DISEASE IS ALSO WITHIN THE DIFFERENTIAL BUT ARE. CONSIDERED LESS LIKELY IN THE ABSENCE OF THE APPROPRIATE CLINICAL PRESENTATION. FURTHER. EVALUATION SHOULD BE BASED ON CLINICAL CHARACTERISTICS. 1241 - Patient's case was discussed with Dr. Heike Carter to come to ED to evaluate. 1405 - Dr. Burroughs recommends for admission to determine if patient has had stroke or demyelinating disease and for additional procedures. 1416 - Patient's case discussed with Dr. Anoop Guardado agrees to admit the patient. - Diagnoses Provider Diagnoses: Right sided numbness - Physician Notifications Discussed Care Of Patient With: Brian Burroughs Time Discussed With Above Provider: 12:41 Instructed by Provider To: Other - 1241 - Patient's case was discussed with Dr. Heike Carter to come to ED to evaluate. 1405 - Dr. Burroughs recommends for admission to determine if patient has had stroke or demyelinating disease and for additional procedures. 1416 - Patient's case discussed with Dr. Anoop Guardado agrees to admit the patient. - Critical Care Time Critical Care Time: 30-74 min - 35 minutes Discharge - Sign-Out/Discharge Documenting (check all that apply): Patient Departure - admit - Discharge Plan Condition: Stable Disposition: ADMITTED TO [facility] Referrals: Delia Severino MD [Primary Care Provider] - - Attestation Statements Document Initiated by Scribe: Yes Documenting Scribe: MERRY FOUNTAIN Provider For Whom Scribe is Documenting (Include Credential): FORREST BATEMAN MD Scribe Attestation: I, MERRY FOUNTAIN, scribed for FORREST BATEMAN MD on 08/03/18 at 1615. Status of Scribe Document: Ready
[2018-08-03 11:04] LABS: ABS Basophils 0 10^3/ul (0-0.2); ABS Eosinophils 0.1 10^3/ul (0-0.6); ABS Lymphocytes 1.3 10^3/ul (1.0-4.8); ABS Monocytes 0.7 10^3/ul (0-0.8); ABS Neutrophils 4.6 10^3/ul (1.5-7.7); ABS Nucleated RBC 0 10^3/ul; Eosinophil % 1.3 %; Hematocrit 38 % (35-47); Hemoglobin 12.9 g/dl (12.0-16.0); Lymphocyte % 19.9 %; Mean Corpuscular HGB Conc 34 g/dl (31-36); Mean Corpuscular Hemoglobin 32 pg (27-31); Mean Corpuscular Volume 93 fL (80-97); Mean Platelet Volume 8.1 fL (7.4-10.4); Nucleated Red Blood Cells % 0; Platelet Count 239 10^3/ul (150-450); Red Cell Distribution Width 13 % (10.5-15); White Blood Count 6.7 10^3/ul (3.5-10.8)
--- OUTSIDE RECORDS SUMMARY | 2018-08-03 11:11 | XMS REPORT | Continuity of Care Document ---
:1975 External Reference #:[id number] Author Name Delia Severino M.D. Address [address] [place] [address] Care Team Providers Name Role Phone Delia Severino Care Team Information Multimedia Technician Unavailable Delia Severino Primary Care Physician Unavailable Payers Date Identification Numbers Payment Provider Subscriber Effective: 2016 Policy Number: [id number] /BS Of LOY Evon Hamilton Rosalindjass PayID: [id number] [address] [place] [id number] Advance Directives Description No Information Available Problems Date Description Provider Status Onset: 10/10/2011 Animal bite wound Alvarez Sim M.D. Active Onset: 10/24/2011 Malaise and fatigue Alvarez Sim M.D. 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 Active Family History Date Family Member(s) Observation Comments General No fam hx lung,colon, breast CA. Father HTN. still working as Psychiatrist. Prostate CA. Mother well, nephrectomy ? benign mass/cyst First Daughter healthy. First Sister age 9, due to accident, had CP. drove her wheelchair into the pond. Paternal Grandfather . Stroke. Paternal Aunt Type I DM Text Input 1 sister age 9 Cerebral Palsy drowning dt power chair malfunction. 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 Tobacco Use Start: Unknown End: Patient is a former stopped completely in Unknown smoker 2006. used to be 1-2 cigs a day. Smoking Status Reviewed: 07/25/18 Patient is a former stopped completely in smoker 2006. used to be 1-2 cigs a day. Exercise runs and cycles 1 -2 hrs Type/Frequency day Current Currently Active The patient is currently sexually active Allergies, Adverse Reactions, Alerts Date Description Reaction Status Severity Comments 09/06/2009 Sulfa Active 09/23/2012 Latex ITCHY Active Medications Medication Date Status Form Strength Qnty SIG Indications Ordering Provider Aspirin Adult Low Active Tablets 81mg 1 by mouth Unknown Dose /0000 DR every day Vitamin D3 Active Capsules 2000Unit 1 by mouth Unknown /0000 every day Vitamin C Active Packet 1000mg - 1 Unknown Effervescent / packet a day in liquid Omeprazole 12/31 Hx Capsules 20mg 30cap 1 by mouth Guido James DR browne every day David - MMarce 07/24 Nitrofurantoin 10/09 Hx Capsules 100mg 10cap take one N39.0 Amara C. Monohyd Macro s by mouth Medhat, - twice MANAGER HAIR 10/15 daily for 5 days. Meclizine HCL 07/11 Hx Tablets 12.5mg 60tab take 1 H81.10 Delia Spangler s to 2 Mere - tablets by MMarce 09/02 mouth every 6 hours as needed Doxycycline 04/20 Hx Capsules 100mg 42cap take one W57.xxxA Rosangela Hyclate /2014 s capsule by Reina, - mouth SCREENING UNIT REGISTERED NURSE 07/11 twice a /2017 day No Active 04/10 Hx Unknown Medications /2014 - 04/10 Cephalexin 04/10 Hx Capsules 750mg 20cap 1 by mouth L02.416 Delia Spangler /2014 s twice a Mere, - day for 10 M.D. . Nitrofurantoin 09/23 Hx Capsules 100mg 14cap 1 by mouth 599.0 Judi Monohyd Macro /2014 s twice a Nataly, - day for Afnp-C 04/10 seven days Phenazopyridine 09/23 Hx Tablets 100mg 6tabs 1 by mouth 599.0 Ngozi three VAUGHN Guillory - times a 04/10 day x days Prednisone 04/01 Hx Tablets 10mg 6tabs 1 tab 786.2 Rosangela every Reina, - morning, SCREENING UNIT REGISTERED NURSE 09/23 evening by mouth for 3days Ritalin 07/20 Hx Tablets 10mg 45tab 1 po q am, 314.01 Rosangela s 1 po q Reina, - afternoon SCREENING UNIT REGISTERED NURSE 03/24 Meloxicam 06/19 Hx Tablets 7.5mg 30tab take po 719.46 s bid with Reina, - food SCREENING UNIT REGISTERED NURSE 03/24 Adderall 06/19 Hx Tablets 10mg 60tab 1-2 tabs 314.01 s po q am Reina, - 1-2 tabs SCREENING UNIT REGISTERED NURSE 07/20 po q pm /2013 Doxycycline 01/04 Hx Tablets 100mg 42tab 1 po bid x 719.49 Mimi Hyclate s 21d Eva, - SCREENING UNIT REGISTERED NURSE 03/25 Cephalexin 12/12 Hx Capsules 250mg 14cap 1 po bid x 681.10 Mimi s 1 week Eva, - SCREENING UNIT REGISTERED NURSE 01/04 Ciprofloxacin HCL 10/17 Hx Tablets 250mg 14tab 1 po bid Alvarez Yosef /2012 Jacki You M.D. 12/12 Azithromycin 10/08 Hx Tablets 250mg 6tabs 2 po today 466.0 and 1 tab VAUGHN Guillory - x 4 days 10/13 Proventil HFA 10/08 Hx Aerosol 108(90Bas 1unit 2 puffs q 466.0 e) s 4 hrs prn VAUGHN Guillory - mcg/Act 01/04 Nitrofurantoin 06/13 Hx Capsules 100mg 10cap 1 po bid 599.0 Delia L. Monohydrate Jacki Mclaughlin M.D. 09/23 Vitamin D 11/26 Hx Capsules [id number] 8caps 1 po Mimi /2012 weekly x Eva - 8. SCREENING UNIT REGISTERED NURSE 06/13 mail to patient. Doxycycline 10/23 Hx Tablets 100mg 42tab take 1 Alvarezgary Gibbs s tablet by Chiquis, - mouth M.D. 06/13 twice a /2012 day Multivitamins 10/09 Hx Tablets 1 po qd [facility] 06/13 [facility] Doxycycline 10/09 Hx Capsules 100mg 10cap 2 tabs po Alvarez Gibbs s once Chiquis, - M.D. 10/23 Vitamin D 07/15 Hx Capsules [id number] 8caps 1 po Delia Spangler weekly x Jacki Severino 8. M.DSteven 10/09 mail to patient. Aspirin Low Dose Hx Tablets 81mg 1 po qd Unknown /0000 - 04/10 Multivit Hx Gummy 2 PO qd Unknown /0000 - 07/11 Vitamin D3 Hx Tablets 1000Unit 2 by mouth Unknown /0000 every day - 12/31 Immunizations CPT Code Status Date Vaccine Lot # [id number] Given 12/31/2012 Tdap Tetanus, W Pertussis 24410 Given 04/14/2010 DO Not Use Split Influenza Virus Vaccine Vital Signs Date Vital Result Comment 07/25/2018 10:20am BP Systolic 116 mmHg BP Diastolic 60 mmHg Heart Rate 60 /min Body Temperature 98.6 F Respiratory Rate 16 /min Height 66.5 inches 5'6.50" Weight 155.25 lb BMI (Body Mass Index) 24.7 kg/m2 12/31/2017 1:53pm BP Systolic 110 mmHg BP Diastolic 64 mmHg Heart Rate 72 /min Body Temperature 98.0 F Respiratory Rate 16 /min Height 66.5 inches 5'6.50" Weight 160.00 lb BMI (Body Mass Index) 25.4 kg/m2 11/29/2017 11:51am BP Systolic 116 mmHg BP Diastolic 68 mmHg Heart Rate 56 /min Body Temperature 98.1 F Respiratory Rate 16 /min Height 66.5 inches 5'6.50" Weight 156.38 lb BMI (Body Mass Index) 24.9 kg/m2 10/27/2017 11:55am BP Systolic 100 mmHg BP Diastolic 60 mmHg Heart Rate 60 /min Body Temperature 99.0 F Respiratory Rate 16 /min Height 66.5 inches 5'6.50" Weight 160.25 lb BMI (Body Mass Index) 25.5 kg/m2 10/09/2017 11:12am BP Systolic 102 mmHg BP Diastolic 62 mmHg Heart Rate 64 /min Body Temperature 97.9 F Height 66.5 inches 5'6.50" Weight 157.00 lb BMI (Body Mass Index) 25.0 kg/m2 09/02/2017 2:08pm BP Systolic 118 mmHg BP Diastolic 72 mmHg Heart Rate 60 /min Body Temperature 97.5 F Respiratory Rate 16 /min Height 66.5 inches 5'6.50" Weight 164.00 lb BMI (Body Mass Index) 26.1 kg/m2 Right Visual Acuity Distance 20/25 corrected/contacts Left Visual Acuity Distance 20/20 corrected/contacts 08/11/2017 1:38pm BP Systolic 102 mmHg BP Diastolic 70 mmHg Heart Rate 60 /min Body Temperature 98.3 F Respiratory Rate 16 /min Weight 157.00 lb 07/11/2017 10:02am BP Systolic 110 mmHg BP Diastolic 64 mmHg Heart Rate 56 /min Body Temperature 97.7 F Respiratory Rate 16 /min Height 67 inches 5'7" Weight 159.00 lb BMI (Body Mass Index) 24.9 kg/m2 04/20/2015 1:26pm BP Systolic 112 mmHg BP Diastolic 62 mmHg Heart Rate 52 /min Body Temperature 97.3 F Respiratory Rate 14 /min Height 67 inches 5'7" 04/10/2015 6:01pm BP Systolic 114 mmHg BP Diastolic 60 mmHg Heart Rate 66 /min Body Temperature 98.7 F Respiratory Rate 16 /min Height 67 inches 5'7" Weight 159.38 lb BMI (Body Mass Index) 25.0 kg/m2 10/19/2014 10:27am BP Systolic 116 mmHg BP Diastolic 70 mmHg Heart Rate 60 /min Body Temperature 97.6 F Respiratory Rate 16 /min Height 67 inches 5'7" Weight 165.25 lb BMI (Body Mass Index) 25.9 kg/m2 09/23/2014 11:10am BP Systolic 110 mmHg BP Diastolic 76 mmHg Heart Rate 56 /min Body Temperature 97.8 F Respiratory Rate 14 /min Height 67 inches 5'7" Weight 167.00 lb BMI (Body Mass Index) 26.2 kg/m2 04/01/2014 10:55am BP Systolic 100 mmHg BP Diastolic 60 mmHg Heart Rate 60 /min Body Temperature 97.0 F Respiratory Rate 18 /min Height 67 inches 5'7" Weight 164.00 lb BMI (Body Mass Index) 25.7 kg/m2 03/24/2014 11:26am BP Systolic 100 mmHg BP Diastolic 60 mmHg Heart Rate 64 /min Body Temperature 96.5 F Respiratory Rate 16 /min Height 67 inches 5'7" Weight 162.50 lb BMI (Body Mass Index) 25.4 kg/m2 07/20/2013 2:08pm BP Systolic 118 mmHg BP Diastolic 64 mmHg Heart Rate 60 /min Body Temperature 97.5 F Respiratory Rate 16 /min Height 67 inches 5'7" Weight 163.25 lb BMI (Body Mass Index) 25.6 kg/m2 06/19/2013 9:57am BP Systolic 110 mmHg BP Diastolic 60 mmHg Heart Rate 68 /min Body Temperature 98.4 F Respiratory Rate 14 /min Height 67 inches 5'7" 05/20/2013 2:10pm BP Systolic 110 mmHg BP Diastolic 60 mmHg Heart Rate 56 /min Body Temperature 98.1 F Respiratory Rate 16 /min Height 67 inches 5'7" Weight 164.00 lb BMI (Body Mass Index) 25.7 kg/m2 03/25/2013 10:37am BP Systolic 110 mmHg BP Diastolic 60 mmHg Heart Rate 60 /min Body Temperature 98.8 F Respiratory Rate 16 /min Height 67 inches 5'7" Weight 166.00 lb BMI (Body Mass Index) 26.0 kg/m2 01/04/2013 11:48am BP Systolic 110 mmHg BP Diastolic 80 mmHg Heart Rate 60 /min Body Temperature 98.7 F Respiratory Rate 16 /min Height 67 inches 5'7" Weight 155.00 lb BMI (Body Mass Index) 24.3 kg/m2 12/12/2012 10:55am BP Systolic 107 mmHg BP Diastolic 70 mmHg Heart Rate 64 /min Body Temperature 97.2 F Respiratory Rate 16 /min Height 67 inches 5'7" Weight 154.00 lb BMI (Body Mass Index) 24.1 kg/m2 10/08/2012 2:12pm BP Systolic 122 mmHg BP Diastolic 82 mmHg Heart Rate 68 /min Body Temperature 98.6 F Respiratory Rate 14 /min O2 % BldC Oximetry 99 % Height 67 inches 5'7" Weight 155.00 lb BMI (Body Mass Index) 24.3 kg/m2 09/23/2012 1:09pm BP Systolic 110 mmHg BP Diastolic 78 mmHg Heart Rate 66 /min Body Temperature 97.8 F Respiratory Rate 14 /min Height 67 inches 5'7" Weight 157.00 lb BMI (Body Mass Index) 24.6 kg/m2 06/13/2012 2:14pm BP Systolic 100 mmHg BP Diastolic 70 mmHg Heart Rate 68 /min Body Temperature 97.9 F Height 67 inches 5'7" Weight 155.00 lb BMI (Body Mass Index) 24.3 kg/m2 11/27/2011 10:04am BP Systolic 100 mmHg BP Diastolic 60 mmHg Heart Rate 54 /min Body Temperature 97.4 F Height 67 inches 5'7" Weight 155.00 lb BMI (Body Mass Index) 24.3 kg/m2 10/29/2011 3:00pm BP Systolic 100 mmHg BP Diastolic 70 mmHg Heart Rate 64 /min Body Temperature 98.3 F Height 67 inches 5'7" Weight 154.00 lb BMI (Body Mass Index) 24.1 kg/m2 10/24/2011 2:28pm BP Systolic 122 mmHg BP Diastolic 60 mmHg Heart Rate 64 /min Body Temperature 98.1 F Height 67 inches 5'7" Weight 154.00 lb BMI (Body Mass Index) 24.1 kg/m2 10/10/2011 11:17am BP Systolic 126 mmHg BP Diastolic 60 mmHg Heart Rate 56 /min Body Temperature 98.0 F Height 67 inches 5'7" Weight 155.00 lb BMI (Body Mass Index) 24.3 kg/m2 07/02/2011 2:24pm BP Systolic 104 mmHg BP Diastolic 60 mmHg Heart Rate 56 /min Body Temperature 97.4 F Respiratory Rate 20 /min Height 67 inches 5'7" Weight 154.00 lb BMI (Body Mass Index) 24.1 kg/m2 06/20/2011 10:33am BP Systolic 100 mmHg BP Diastolic 70 mmHg Heart Rate 56 /min Height 67 inches 5'7" Weight 155.00 lb BMI (Body Mass Index) 24.3 kg/m2 01/17/2011 11:26am BP Systolic 98 mmHg BP Diastolic 68 mmHg Heart Rate 72 /min Body Temperature 97.6 F Height 67 inches 5'7" Weight 149.00 lb BMI (Body Mass Index) 23.3 kg/m2 09/06/2009 1:12pm BP Systolic 100 mmHg BP Diastolic 60 mmHg Heart Rate 60 /min Height 67 inches 5'7" Weight 145.00 lb BMI (Body Mass Index) 22.7 kg/m2 Results Test Date Facility Test Result H/L Range Note CBC Electronic (a New) 07/25/2018 [facility] WBC <pending> 4.0- 10.0 (607)- - RBC <pending> 3.93-6.0 Hemoglobin (Fma/CMC/CTX) <pending> g/dL 12.0-17.0 Hematocrit (Fma/CMC/CTX) <pending> % 35.0-50.0 Mean Corpuscular Vol <pending> fL 80-95 Mean Corpuscular Hemoglobin <pending> pg 25.6-32.2 Mean Corpuscular Hemo Concen <pending> g/dL 32.2-36.0 Platelets <pending> 10^3/ul 163-400 RDW-CV <pending> 11.6-14.4 Mean Platelet Volume <pending> fL 8.0-12.4 Absolute Neutrophils BLD <pending> 1.56-6.13 Absolute Lymphocytes <pending> 1.18-3.74 Absolute Monocytes BLD Auto <pending> 0.24-0.82 Absolute Eos Blood <pending> 0.04-0.54 Absolute Basophils <pending> 0.01-0.08 Neutrophil % <pending> % 34.0-70.0 Lymph% <pending> % 20.0-52.0 Monocytes % <pending> % 5.0-12.0 Eos % <pending> % 0.7-7.0 Basophil% <pending> % 0-1.2 CBC Auto Diff 05/22/2018 [facility] White Blood Count 5.9 10^3/uL N 3.5-10.8 Red Blood Count 4.38 10^6/uL N 4.00-5.40 Hemoglobin 13.9 g/dL N 12.0-16.0 Hematocrit 41 % N 35-47 Mean Corpuscular Volume 93 fL N 80-97 Mean Corpuscular Hemoglobin 32 pg High 27-31 Mean Corpuscular HGB Conc 34 g/dL N 31-36 Red Cell Distribution Width 13 % N 10.5-15 Platelet Count 231 10^3/uL N 150-450 Mean Platelet Volume 7.9 fL N 7.4-10.4 Abs Neutrophils 3.9 10^3/uL N 1.5-7.7 Abs Lymphocytes 1.3 10^3/uL N 1.0-4.8 Abs Monocytes 0.7 10^3/uL N 0-0.8 Abs Eosinophils 0 10^3/uL N 0-0.6 Abs Basophils 0.1 10^3/uL N 0-0.2 Abs Nucleated RBC 0 10^3/uL Granulocyte % 65.5 % Lymphocyte % 21.6 % Monocyte % 11.3 % Eosinophil % 0.7 % Basophil % 0.9 % Nucleated Red Blood Cells % 0 Laboratory test 05/22/2018 [facility] D Dimer Quantitative < 200 ng/mL N Less Than 230 1 finding Troponin I 0.00 ng/mL <0.04 2 Basic Metabolic Panel 05/22/2018 [facility] Sodium 138 mmol/L N 135-145 Potassium 3.7 mmol/L N 3.5-5.0 Chloride 108 mmol/L N 101-111 Co2 Carbon Dioxide 24 mmol/L N 22-32 Anion Gap 6 mmol/L N 2-11 Glucose 101 mg/dL High 70-100 Blood Urea Nitrogen 16 mg/dL N 6-24 Creatinine 0.90 mg/dL N 0.51-0.95 BUN/Creatinine Ratio 17.8 N 8-20 Calcium 9.3 mg/dL N 8.6-10.3 Egfr Non- 69.0 >60 Egfr 83.5 >60 3 Urine Culture And 10/27/2017 [facility] Urine Culture SEE RESULT BELOW 4, 5 Sensitivities Laboratory test 10/27/2017 [facility] Lyme Disease Equivocal Negative 6 finding Serology Lyme Western Blot 10/27/2017 [facility] Lyme Disease IgG Negative Negative Ab WB Lyme Disease IgG Bands Present No bands detecte <SEE NOTE> kDa 7 Lyme Disease IgM Ab WB Negative Negative Lyme Disease IgM Bands Present No bands detecte <SEE NOTE> kDa 8 Lyme Disease Interpretation See Comment 9 Urine (Fma) 10/27/2017 [facility] SP Grav 1.010 (607)- - Urine, (Fma/CMC/CTX) neg Ua - Non Micro (Fma) 10/27/2017 [facility] Appearance clear (607)- - Color yellow Glucose, Urine (Fma/CMC/CTX) neg Bilirubin neg Ketones neg SP Grav 1.010 Blood neg PH 7.0 Protein neg Urobil 0.2 Nitrite neg Leukocytes (Fma/CMC/[facility]) neg Poc Urinalysis 10/25/2017 [facility] Poc Glucose, Urine Negative Negative Poc Bilirubin, Urine Negative Negative Poc Ketone, Urine Negative Negative Poc Specific [place], Urine 1.015 N 1.010-1.030 Poc Blood, Urine Negative Negative Poc pH, Urine 6.0 N 5-9 Poc Protein, Urine Negative Negative Poc Urobilinogen, Urine 0.2 Negative Poc Nitrite, Urine Negative Negative Poc Leukocytes, Urine Negative Negative Poc Color, Urine Yellow Poc Clarity, Urine Clear 10 CCP Abs 10/14/2017 [facility] CCP Antibodies 26 units High 0-19 11, 12 Igg/Iga [address] [facility] IgG/[place] [address] (607)- - Laboratory 10/14/2017 [facility] C-Reactive <0.3 mg/L 0.0-4.9 test finding [address] [place] [address] Protein, [place] [address] (607)- - Rheumatoid 10/14/2017 [facility] Ra Latex <10.0 IU/mL 0.0-13. Arthritis [address] [place] [address] Turbid. 9 [place] [address] ([facility]) (607)- - Laboratory 10/14/2017 [facility] Antinuclear Negative 13 test finding [facility] Antibodies, [place] [address] (607)- - CBC Electronic 10/14/2017 [facility] WBC 5.60 4.0-10. (Fma New) (607)- - 0 RBC 4.35 3.93-6.0 Hemoglobin (Fma/CMC/CTX) 13.7 g/dL 12.0-17.0 Hematocrit (Fma/CMC/CTX) 39.9 % 35.0-50.0 Mean Corpuscular Vol 91.7 fL 80-95 Mean Corpuscular Hemoglobin 31.5 pg 25.6-32.2 Mean Corpuscular Hemo Concen 34.3 g/dL 32.2-36.0 Platelets 266 10^3/ul 163-400 RDW-CV 12.9 11.6-14.4 Mean Platelet Volume 9.9 fL 9.4-12.4 Absolute Neutrophils BLD 2.97 1.56-6.13 Absolute Lymphocytes 1.90 1.18-3.74 Absolute Monocytes BLD Auto 0.69 0.24-0.82 Absolute Eos Blood 0.00 Low 0.04-0.54 Absolute Basophils 0.03 0.01-0.08 Neutrophil % 53.1 34.0-70.0 Lymph% 33.9 % 20.0-52.0 Monocytes % 12.3 % High 5.0-12.0 Eos % 0.0 % Low 0.7-7.0 Basophil% 0.5 % 0.1-1.2 Laboratory test 10/14/2017 [facility] Medicine Sedimentation Rate 6mm finding (607)- - Laboratory test 10/14/2017 [facility] (Fma) TSH 1.83 mIU/L 0.50-6. finding 00 Lipid Profile 10/14/2017 St[facility] Velia (Fma) Cholesterol 158 mg/dL 120- 200 Triglycerides 53 mg/dL 30-200 HDL Cholesterol 71 mg/dL 30-85 LDL (Calculated) 76 CALC 0-129 VLDL Cholesterol 11 mg/dL 0-50 HDL Risk Factor 2.2 CALC 0.0-4.4 Comprehensive Metabolic 10/14/2017 [facility] (Fma) Sodium 140 mEq/L 134-149 Prof Potassium 4.1 mEq/L 3.6-5.5 Chloride 102 mEq/L 94-112 Carbon Dioxide 22 mEq/L 21-32 Glucose 93 mg/dL 70-105 BUN 14 mg/dL 6-26 Creatinine 0.9 mg/dL 0.6-1.4 BUN/Creat Ratio 15.6 CALC 8.0-36.0 Calcium 9.6 mg/dL 8.6-10.2 Total Protein 7.2 g/dL 6.4-8.3 Albumin 4.8 g/dL 3.8-5.5 Globulin 2.4 g/dL 2.0-4.8 A/G Ratio 2.0 CALC 0.6-2.3 Alk. Phosphatase 48 U/L 30-110 Alt (SGPT) 19 U/L 7-35 Ast (Sgot) 25 U/L 5-34 Total Bilirubin 0.6 mg/dL 0.2-1.3 GFR Non- >60 ml/min/1.73m^ >=60 GFR >60 ml/min/1.73m^ >=60 Ua - Micro (Fma) 10/09/2017 [facility] Appearance yellow (607)- - Color clear Glucose, Urine (Fma/CMC/CTX) neg Bilirubin neg Ketones neg SP Grav <=1.005 Blood neg PH 7.0 Protein neg Urobil 0.2 Nitrite neg Leukocytes (Fma/CMC/[facility]rex) trace Hyaline - /Lpf Granular - /Lpf WBC (Fma,[facility]rex) 4-6 RBC - Mucus occ /Lpf Epith trace /Lpf Bacteria - /Hpf Amorphous - /Lpf Crystals, Fluid (Fma/CMC/CTX) - Z#Comments - Complete Blood Count 04/20/2015 [facility] (a) WBC 5.6 x10^3/UL 3.6-9.6 RBC 4.14 x10^6/UL 3.90-5.70 HGB 13.5 g/dL 12.1-17.2 HCT 39 % 36-50 MCV 94.0 fL 82.2-97.4 MCH 32.6 pg 27.6-33.3 MCHC 34.7 g/dL 33.0-35.5 RDW 13.1 % 11.6-13.7 PLT 266 x10^3/UL 150-400 MPV 7.0 fL Low 7.4-10.4 Gran # 3.0 x10^3/UL 1.5-7.2 Lymph# 2.2 x10^3/UL 0.7-4.9 [place]# 0.4 x10^3/UL 0.1-0.9 Gran % 51.8 % 42.2-75.2 Lymph % 40.7 % 20.5-51.1 [place]% 7.5 % 1.7-9.3 Lyme, Western Blot, 04/20/2015 [facility] IgG P93 Ab. Absent 14 Serum [address] [place] [address] (607)- - IgG P66 Ab. Present Abnormal IgG P58 Ab. Absent IgG P45 Ab. Absent IgG P41 Ab. Absent IgG P39 Ab. Absent IgG P30 Ab. Absent IgG P28 Ab. Absent IgG P23 Ab. Absent IgG P18 Ab. Absent Lyme IgG WB Interp. Negative 15 IgM P41 Ab. Absent IgM P39 Ab. Absent IgM P23 Ab. Present Abnormal Lyme IgM WB Interp. Negative 16 Laboratory test 04/20/2015 [facility] Sed Rate (Fma/CMC/Centrex) 6 mm finding (607)- - Ua - Micro ([facility]) 10/19/2014 [facility] Appearance CLEAR (607)- - Color ORANGE PT Took Pyridium Hyaline - /Lpf Granular - /Lpf WBC (a,[facility]) 20-30 # RBC 1-2 # Mucus - /Lpf Epith FEW /Lpf # Bacteria 2+ /Hpf # Amorphous - /Lpf Crystals, Fluid (Fma/CMC/CTX) - Z#Comments - Laboratory test 09/23/2014 [facility] Urine Culture Staphylococcus s 17 finding 28 [facility] <SEE NOTE> [place] [address] [phone] Ua - Micro 09/23/2014 [facility] Appearance CLEAR ([facility]) (607)- - Color YELLOW Glucose, Urine (Fma/CMC/CTX) NEG Bilirubin NEG Ketones NEG SP Grav <=1.005 Blood NEG PH 6.0 Protein NEG Urobil 0.2 Nitrite NEG Leukocytes (Fma/CMC/[facility]) SMALL # Hyaline - /Lpf Granular - /Lpf WBC (a,[facility]) 3-5 # RBC 0-1 # Mucus - /Lpf Epith RARE /Lpf # Bacteria TRACE /Hpf # Amorphous - /Lpf Crystals, Fluid (Fma/CMC/CTX) - Z#Comments - CBC Electronic ([facility]) 01/04/2013 [facility] WBC 5.7 3.6-9.6 (607)- - RBC 4.32 3.90-5.70 Hemoglobin (Fma/CMC/CTX) 13.4 g/dL 12.1 - 17.2 Hematocrit (a/CMC/CTX) 39.9 % 36.1 - 50.3 Platelets 247 10^3/ul 150-400 Lymph% 25.3 20.5-51.1 Mixed% 4.9 Neutrophils % 69.8 Mean Corpuscular Vol 92 82.2-97.4 Mean Corpuscular Hemoglobin 31.0 27.6-33.3 Mean Corpuscular Hemo Concen 33.5 32.0-36.0 RDW 13.3 11.6-13.7 Mean Platelet Volume 7.3 6.5-11.0 Laboratory test 01/04/2013 [facility] Sed Rate 9MM finding (607)- - (Fma/CMC/[facility]) Lyme Igg/M W/RFX 01/04/2013 [facility] Lyme IgG/IgM Ab <0.91 index 0.00- 18 [address] [facility] [address] [place], [place] [id number] [phone] Lyme Disease Ab, Quant, IgM <0.91 index 0.00-0.90 19 Laboratory test 12/31/2012 [facility] Hepatitis B Surface Nonreactive Nonreactive finding Antigen Hepatitis B Grupo AB 12/31/2012 [facility] Hepatitis B Surface Nonreactive Nonreactive Titer AB Hep B Surf AB Index 0.10 20 Laboratory test 12/31/2012 [facility] Hepatitis C Antibody Nonreactive Nonreactive finding HIV 1 2 AB Nonreactive Nonreactive 21 Laboratory test 07/30/2012 [facility] Antinuclear Abs, Negative 22 finding 28 [facility] [address] [phone] Rheumatoid Arth Factor 8.2 IU/mL 0.0-13.9 Laboratory test 07/30/2012 [facility] Medicine Sed Rate 4mm finding (607)- - (Fma/CMC/[facility]rex) Laboratory test 07/30/2012 [facility] (a) Uric Acid 3.7 mg/dL 2.5- 9. finding 2 Ua - Micro (Fma) 06/13/2012 [facility] Medicine Appearance yellow (607)- - Color clear Glucose neg Bilirubin neg Ketones neg SP Grav 1.025 Blood large PH 6.0 Protein ssa 1+ Urobil 0.2 Nitrite neg Leukocytes (Fma/CMC/[facility]) large Hyaline micro not read /Lpf Granular by provider /Lpf Laboratory test 06/13/2012 [facility] Urine Culture Escherichia coli 23 finding [address] [place] [address] [phone] Laboratory test 11/27/2011 [facility] Thin Prep SEE NOTE 24 finding 28 [facility] W/HPV(Lsil/[place] [address] /Asc) [phone] Ua - Non Micro 11/27/2011 [facility] Medicine Appearance CLEAR (a) (607)- - Color YELLOW Glucose NEG Bilirubin NEG Ketones NEG SP Grav 1.015 Blood NEG PH 7.5 Protein NEG Urobil 0.2 Nitrite NEG Leukocytes (Fma/CMC/[facility]) NEG Lyme Igg/M 11/01/2011 [facility] Lyme IgG/IgM <0.91 index 0.00-0.90 25 W/RFX West [facility] [place] [address] [phone] Lyme Disease Ab, Quant, IgM <0.91 index 0.00-0.90 26 Comprehensive Metabolic 07/09/2011 [facility] (Fma) Albumin 4.8 g/dL 3.8-5.5 Prof Alk. Phos. 41 U/L 30-110 Alt (SGPT) 16 U/L 7-35 Ast (Sgot) 26 U/L 5-34 BUN 21 mg/dL 6-26 Calcium 9.5 mg/dL 8.6-10.2 Chloride 101 mEq/L 94-112 Creatinine 0.8 mg/dL 0.6-1.4 Carbon Dioxide 26 mEq/L 21-32 Glucose 77 mg/dL 70-105 Sodium 137 mEq/L 134-149 Total Bilirubin 0.4 mg/dL 0.2-1.3 Total Protein 7.1 g/dL 6.3-8.1 Potassium 4.5 mEq/L 3.6-5.5 Globulin 2.4 g/dL 2.0-4.8 A/G Ratio 2.0 Calc 0.6-2.2 BUN/Creat Ratio 27.5 Calc 8.0-36.0 Laboratory test 07/09/2011 [facility] (Fma) Free T3 2.36 pg/mL 2.00- 4.90 finding TSH 1.50 mIU/L 0.50-6.00 Laboratory 07/09/2011 [facility] Vitamin D, 21.1 Low 30.0-100.0 , 28 test finding [address] [place] [address] 25 Oh ng/[place] [address] [phone] PTH Intact 07/09/2011 [facility] Calcium 8.9 mg/dL 8.4-10.4 W/[facility] (CX) [address] [place] [address] [phone] Intact PTH 31.6 pg/mL 10.0-73.0 Calcium 8.9 mg/dL 8.4-10.4 Ua - Non Micro ([facility]) 07/02/2011 [facility] Appearance CLEAR (607)- - Color YELLOW Glucose - Bilirubin - Ketones - SP Grav 1.010 Blood - PH 6.5 Protein - Urobil 0.2 Nitrite - Leukocytes ([facility]) - Laboratory test 06/20/2011 [facility] (a) Folate 18.55 ng/mL High 3.00-16.00 finding B12 1003 pg/mL 230-1050 CBC Electronic (a) 06/20/2011 [facility] WBC 5.0 3.6-9.6 (607)- - RBC 4.53 3.90-5.70 Hemoglobin ([facility]) 14.4 g/dL 12.1 - 17.2 Hematocrit ([facility]/CTX) 41.5 % 36.1 - 50.3 Platelets 308 10^3/ul 150-400 Lymph% 29.3 20.5-51.1 Mixed% 8.9 Neutrophils % 61.8 Mean Corpuscular Vol 92 82.2-97.4 Mean Corpuscular Hemoglobin 31.7 27.6-33.3 Mean Corpuscular Hemo Concen 34.6 32.0-36.0 RDW 12.0 11.6-13.7 Mean Platelet Volume 7.3 6.5-11.0 Comp Metabolic Panel 03/29/2010 [facility] Sodium 133 mmol/L Low 135-145 Potassium 3.9 mmol/L 3.5-5.0 Chloride 104 mmol/L 101-111 Co2 (Carbon Dioxide) 28.0 mmol/L 22-32 Anion Gap 1.0 mmol/L Low 2-11 29 Glucose 83 mg/dL 70-100 30 BUN 11 mg/dL 6-24 Creatinine 0.70 mg/dL 0.50-1.40 One Over Creatinine 1.40 BUN/Creatinine Ratio 15.7 8-20 Calcium 8.7 mg/dL 8.1-9.9 Total Protein 6.4 GM/DL 6.2-8.1 Albumin 4.3 GM/DL 3.6-5.4 Globulin 2.1 GM/DL 2-4 Albumin/Globulin Ratio 2.0 1-3 Bilirubin Total 0.7 mg/dL 0.4-1.5 31 Alkaline Phosphatase 51 U/L 30-110 Alt (SGPT) 26 U/L 14-54 Ast (Sgot) 38 U/L 12-42 eGFR Non- 102.4 > 60 eGFR 123.9 > 60 32 Lipid Profile (Trig/Chol/HDL) 03/29/2010 [facility] Triglyceride 99 mg/dL 40- 200 Cholesterol 175 mg/dL Less Than 200 33 High Density Lipoprotein 51 mg/dL 40-60 34 Cholesterol/HDL Ratio 3.43 AVERAGE 1-4.44 Low Density Lipoprotein 104 mg/dL High Less Than 100 35 Laboratory test finding 03/29/2010 [facility] Erythrocyte Sed Rate 1 MM/HR 0- 15 Lupus Anticoagulant AB 03/29/2010 [facility] Prothrombin Time 9.9 s 8.3-10.8 Inr 1.1 0.9-1.2 PT Mix 1:1 SEE BELOW s () 36 Aptt 27 s 21-33 Aptt Mix 1:1 SEE BELOW s () 37 Platelet Neutralization Proced SEE BELOW () 38 DRVVT Screen Ratio 0.8 ratio <1.2 DRVVT Mix Ratio SEE BELOW ratio <1.2 39 Thrombin Time (Bovine) SEE BELOW s 16-25 40 Reptilase Time SEE BELOW s 16-22 41 Interpretation SEE BELOW () 42 Cardiolipin Igg,Igm,Iga AB 03/29/2010 [facility] Cardiolipin Igg AB <4.0 GPL ( ) 43 Cardiolipin Igm AB <4.0 MPL () 44 Cardiolipin Iga AB <4.0 APL () 45 Mony (Antinuclear Antibodies) 03/29/2010 [facility] Antinuclear AB NEGATIVE Negative Reviewed By (SEE NOTE) 46 1 Please note: The following may produce a false positive D Dimer test: - Rheumatoid factor greater than 60 IU/ml - Plasma hemoglobin greater than 0.05 gm/dl - Bilirubin greater than 50 mg/dl - Lipids greater than 1000 mg/dl - FDP greater than 20 ug/ml 2 Troponin-I testing on Plasma Separator Tubes (PST) has a known false positive rate of 0.20-0.40%. All positive troponins reflex immediate secondary confirmatory testing. 3 Because ethnic data is not always readily available, this report includes an eGFR for both -Americans and non- Americans. The National Kidney Disease Education Program (NKDEP) does not endorse the use of the MDRD equation for patients that are not between the ages of 18 and 70, are , have extremes of body size, muscle mass, or nutritional status, or are non- or non-. According to the National Kidney Foundation, irrespective of diagnosis, the stage of the disease is based on the level of kidney function: Stage Description GFR(mL/min/1.73 m(2)) 1 Kidney damage with normal or decreased GFR 90 2 Kidney damage with mild decrease in GFR 60-89 3 Moderate decrease in GFR 30-59 4 Severe decrease in GFR 15-29 5 Kidney failure <15 (or dialysis) 4 [id number] 5 SEE RESULT BELOW Name: ROSALINDJOSEReynaldoPRIYANKAMAICO Gary : [address]: Mimi Velasquez NP Acct: [id number] Unit: [id number] AGE: 42 Location: [facility] Re10/27/17 SEX: F Status: REG REF SPEC: [id number] SHAISTA: 10/27/17-[facility]: Mimi Velasquez NP REQ: [id number] RECD: 10/27/17 STATUS: COMP _ SOURCE: URINE SPDES: ORDERED: Urine Culture COMMENTS: [id number] Urine Source: Random Procedure Result Reported Site Urine Culture Final 10/29/17- 828 ML No Growth (<1,000 CFU/mL) * ML - Main Lab . END OF REPORT DEPARTMENT OF PATHOLOGY, [address] [place] [address] Isaias Sorto M.D. Director [facility] # [id number] 6 Not diagnostic. Supplemental testing by immunoblot has been ordered by reflex. Test Performed by: [facility] [address] [place] [address] 7 No bands detected 8 No bands detected 9 Specific serologic response to B. burgdorferi infection is not detected, but cannot rule out early infection during which low or undetectable antibody levels to B. burgdorferi may be present. If clinically indicated, a new serum specimen should be submitted in 7-14 days. ADDITIONAL INFORMATION CDC criteria require >=5 bands for IgG or >=2 bands for IgM for the Immunoblot to be considered positive. Bands (e.g.,p41) may be detected in patients without Lyme disease, and patterns not meeting the CDC criteria should be interpreted with caution. Immunoblot should be ordered only on specimens that are positive or equivocal by a FDA-licensed Lyme disease antibody screening test (e.g., EIA). Test Performed by: [facility] [address] [place] [address] 10 Tax Adjuster: [id number] 11 2 sst 12 Negative <20 Weak positive 20 - 39 Moderate positive 40 - 59 Strong positive >59 13 Negative <1:80 Borderline 1:80 Positive >1:80 14 1 sst 15 Positive: 5 of the following Borrelia-specific bands: 18,23,28,30,39,41,45,58, 66, and 93. Negative: No bands or banding patterns which do not meet positive criteria. 16 Note: An equivocal or positive EIA result followed by a negative Western Blot result is considered NEGATIVE. An equivocal or positive EIA result followed by a positive Western Blot is considered POSITIVE by the CDC. Positive: 2 of the following bands: 23,39 or 41 Negative: No bands or banding patterns which do not meet positive criteria. Criteria for positivity are those recommended by CDC/ASTPHLD. p23=Osp C, k98=rbijbulpm Note: Sera from individuals with the following may cross react in the Lyme Western Blot assays: other spirochetal diseases (periodontal disease, leptospirosis, relapsing fever, yaws, and pinta); connective autoimmune (Rheumatoid Arthritis and Systemic Lupus Erythematosus and also individuals with Antinuclear Antibody); other infections ([place] Spotted Fever; Atiya-Martinez Virus, and Cytomegalovirus). 17 Staphylococcus saprophyticus >100,000 col/ml . URINE CULTURE ORGANISM 1 Staphylococcus saprophyticus ORGANISM 1 >100,000 col/ml Ciprofloxacin <=0.5 Susceptible Clindamycin <=0.25 Susceptible Erythromycin 0.5 Susceptible Levofloxacin 0.5 Susceptible Moxifloxacin <=0.25 Susceptible Nitrofurantoin <=16 Susceptible Oxacillin >=4 Resistant Penicillin-G >=0.5 Resistant Quinupristin/Dalfopristin 0.5 Susceptible Tetracycline <=1 Susceptible Trimethoprim/Sulfa <=10 Susceptible Vancomycin <=0.5 Susceptible 18 Negative <0.91 Equivocal 0.91 - 1.09 Positive >1.09 Note: The CDC currently advises that Western blot testing be performed following all equivocal or positive EIA results. Final diagnosis should include appropriate clinical findings and a positive EIA which is also positive by Western blot. 19 Negative <0.91 Equivocal 0.91 - 1.09 Positive >1.09 Note: IgM levels may peak at 3-6 weeks post infection, then gradually decline. FDA currently advises that Western Blot testing be performed following all equivocal or positive EIA results. Final diagnosis should include appropriate clinical findings and a positive EIA which is also positive by Western Blot. 20 The World Health Organization (WHO) Hepatitis B Immunoglobulin 1st International Reference Preparation (1976): The accepted criteria for immunity to HBV is anti-HBs activity greater than or equal to 10 mIU/mL. An Index Value of 1.00 is equivalent to 10 mIU/mL. Samples with an Index Value of 1.00 or greater are considered reactive (protective) in accordance with the CDC guidelines. 21 It is recognized that currently available assays for the detection of antibodies to HIV-1 and/or HIV-2 may not detect all infected individuals. HIV antibodies may be undetectable in some stages of the infection and in some clinical conditions. The performance of this assay has not been established for populations of infants or children. Assayed by Chemiluminescence Microparticle Immunoassay on the Siemens Advia Centaur CP. Values obtained with different methods or kits cannot be used interchangeably.The diagnostic specificity of the ADVIA Centaur 1/O/2 Enhanced assay in the low risk population was 99.90% (6052/6058) with a 95% confidence interval of 99.78 to 99.96%. 22 Negative <1:80 Borderline 1:80 Positive >1:80 23 Escherichia coli >100,000 col/ml URINE CULTURE organism 1 Escherichia coli >100,000 col/ml Meropenem <=0.25 Susceptible Ertapenem <=0.5 Susceptible Amikacin <=2 Susceptible Amoxicillin/CA <=2 Susceptible Ampicillin <=2 Susceptible Aztreonam <=1 Susceptible Cefazolin <=4 Susceptible Ciprofloxacin <=0.25 Susceptible Gentamicin <=1 Susceptible Imipenem <=1 Susceptible Levofloxacin <=0.12 Susceptible Nitrofurantoin <=16 Susceptible Tetracycline <=1 Susceptible Trimethoprim/Sulfa <=20 Susceptible 24 [facility] [employer] DEPARTMENT OF PATHOLOGY or Extension [address] [employer] MACHINE OPERATOR CYTOLOGY REPORT PATIENT: EVON BRADEN : 1975 AGE: 36 Y SEX: F ACCT: [id number] PROCEDURE DATE: 11/27/2011 DATE RECEIVED: 11/28/2011 REQUESTING PHYSICIAN: HANDY SCALESF LOCATION: [facility] Case No. [id number] PATIENT DATA: [id number] SPECIMEN SUBMITTED: * * (HPVII) THIN PREP W/HPV (LSIL/ASC/SANTIAGO) * * ENDOCERVICAL RELEVANT HISTORY: : 1 Prev.abnormal: 2007 Para: 2 Comment: LMP 2 WEEKS AGO SPECIMEN ADEQUACY SATISFACTORY FOR EVALUATION, ENDOCERVICAL TRANSFORMATION ZONE COMPONENT PRESENT GENERAL CATEGORIZATION NEGATIVE FOR INTRAEPITHELIAL LESIONS OR MALIGNANCY COMMENTS Thin Prep Pap tests are examined with an FDA approved location-guidance system. ADDITIONAL COPIES SENT TO: Screened/Rescreened Electronically Signed Sign Out Date/Time: by: by: STEVE WILDE, 11/29/2011 11:43 CT(ASCP) Note: The Pap smear is a screening test designed to aid in the detection of premalignant and malignant conditions of the uterine cervix. It is not a diagnostic procedure and should not be used as the sole means of detecting cervical cancer. Both false-positive and false-negative reports do occur. 00 UA Pap Smear performed at [place] Dir: Gege Landry MD, [address] [facility] [address] 01 supervisor mold cleaning and storage [facility] [place] Dir: Maikel Monk MD, [address] [facility] [id number] 02 Lab [facility] [place] Dir: Dieudonne Dwyer MD, [address] [facility] [id number] For inquiries regarding HPV test results, the physician may contact Lab [facility]: [phone] "" 25 Negative <0.91 Equivocal 0.91 - 1.09 Positive >1.09 Note: The CDC currently advises that Western blot testing be performed following all equivocal or positive EIA results. Final diagnosis should include appropriate clinical findings and a positive EIA which is also positive by Western blot. 26 Negative <0.91 Equivocal 0.91 - 1.09 Positive >1.09 . Note: IgM levels may peak at 3-6 weeks post infection, then gradually decline. FDA currently advises that Western Blot testing be performed following all equivocal or positive EIA results. Final diagnosis should include appropriate clinical findings and a positive EIA which is also positive by Western Blot. 27 FASTING; 2 sst's 28 Vitamin D deficiency has been defined by the [place] of Medicine and an Endocrine Society practice guideline as a level of serum 25-OH vitamin D less than 20 ng/mL (1,2). The Endocrine Society went on to further define vitamin D insufficiency as a level between 21 and 29 ng/mL (2). 1. IOM ([place] of Medicine). 2011. Dietary reference intakes for calcium and D. [place]: The National [employer]. 2. Akua MF, Shirley GALINDO, Chao HORTON, et al. Evaluation, treatment, and prevention of vitamin D deficiency: an Endocrine Society clinical practice guideline. JCEM. 2011 Dec; 96(7):1911-30. 29 Anion gap measurement may be of limited value in the presence of any alkalosis, especially in a combined acid base disorder. . 30 Note change in reference range as of 01/28/08. The change was based on recommendations from the [place] Diabetes Association. 31 A metabolite of Naproxen, O-desmethylnaproxen, has been shown to interfere with the [place] method for measuring total bilirubin. Samples from patients who have taken Naproxen have shown spurious elevation in total bilirubin levels. 32 Because ethnic data is not always readily available, this report includes an eGFR for both -Americans and non- Americans. The National Kidney Disease Education Program (NKDEP) does not endorse the use of the MDRD equation for patients that are not between the ages of 18 and 70, are , have extremes of body size, muscle mass, or nutritional status, or are non- or non-. According to the National Kidney Foundation, irrespective of diagnosis, the stage of the disease is based on the level of kidney function: Stage Description GFR(mL/min/1.73 m(2)) 1 Kidney damage with normal or decreased GFR 90 2 Kidney damage with mild decrease in GFR 60-89 3 Moderate decrease in GFR 30-59 4 Severe decrease in GFR 15-29 5 Kidney failure <15 (or dialysis) 33 CHOLESTEROL INTERPRETATION: Desirable: Less than 200 MG/DL Borderline-High Risk: 200-239 MG/DL High-Risk: 240 MG/DL and over 34 HDL INTERPRETATION: Undesirable: High Risk: Less than 40 MG/DL Desirable: Low Risk: Greater than 60 MG/DL 35 LDL INTERPRETATION: Low Risk Optimal Level: LDL Less than 100 MG/DL Near or Above Optimal: LDL 100-129 MG/DL Borderline High Risk: LDL 130-159 MG/DL High Risk: LDL 160-189 MG/DL Very High Risk: LDL Greater than 189 MG/DL 36 Reflexed test not required 37 Reflexed test not required 38 Reflexed test not required 39 Reflexed test not required 40 Reflexed test not required 41 Reflexed test not required 42 No evidence of a lupus-like anticoagulant based on normal results of Prothrombin Time (PT), Activated Partial Thromboplastin Time (APTT) and Dilute Russells Viper Venom Time (DRVVT). Interpretation not reviewed by physician. Test Performed by: [facility] D[facility] of Lab Med and Pathology [address] [place] [address] Glaciologist: Joaquin Cohen III, M.D. 43 Interpretation: Negative (<10.0 GPL) Test Performed by: [facility] [address] [place] [address] Glaciologist: Joaquin Cohen III, M.D. 44 Interpretation: Negative (<10.0 MPL) Test Performed by: [facility] Med [facility] Pathology [address] [place] [address] Glaciologist: Joaquin Cohen III, M.D. 45 Interpretation: Negative (<10.0 APL) Test Performed by: [facility] Pathology [address] [place] [address] Glaciologist: Joaquin Cohen III, M.D. 46 REVIEWED BY ISAIAS SORTO MD Procedures Date Code Description Status 11/29/2017 66749 Electrocardiogram Complete Completed 04/01/2013 [id number] Mammogram Completed 10/08/2012 06126 Pulse Oximetry Completed 09/07/2009 [id number] Mammogram Completed Encounters Type Date Location Provider Dx Diagnosis Office Visit 12/31/2017 1:40p Main Office Guido Hernandez M.D. R00.2 Palpitations R06.4 Hyperventilation Office Visit 11/29/2017 11:20a Main Office Alvarez Sim M.D. 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 Office Visit 08/11/2017 1:30p [facility] Anastasiia Go J11.1 Flu due to Jones, MANAGER HAIR unidentified influenza virus w oth resp manifest Office Visit 07/11/2017 10:00a [facility] Delia Spangler H81.10 Benign paroxysmal Clayton Severino vertigo, unspecified ear Q21.1 Atrial septal defect Office Visit 04/20/2015 1:15p Main Office Rosangela L02.416 Cutaneous abscess Reina, SCREENING UNIT REGISTERED NURSE of left lower limb W57.xxxA Bit/stung by nonvenom insect & oth nonvenom arthropods, init M25.562 Pain in left knee W57.XXXA Bit/stung by nonvenom insect & oth nonvenom arthropods, init S80.861A Insect bite (nonvenomous), right lower leg, init encntr Office Visit 04/10/2015 Main Office Delia Spangler L02.416 Cutaneous abscess 6:00p Clayton Severino of left lower limb Office Visit 10/19/2014 [facility] Judi Ingram, 599.0 UTI Urinary Tract 10:00a Office Afnp-C Infection Site Not Spec Office Visit 09/23/2014 [facility] Ngozi Guillory, 599.0 UTI Urinary Tract 11:00a Office MANAGER HAIR Infection Site Not Spec Office Visit 04/01/2014 [facility] Rosangela 786.2 Cough 10:45a Office Reina, SCREENING UNIT REGISTERED NURSE Office Visit 07/20/2013 Main Office Rosangela 314.01 Attention Deficit 2:00p Reina, SCREENING UNIT REGISTERED NURSE Disorder W/ Hyperactivity Office Visit 06/19/2013 Main Office Rosangela 719.46 Pain Joint Lower 9:45a Reina, SCREENING UNIT REGISTERED NURSE Leg 314.01 Attention Deficit Disorder W/ Hyperactivity E885.9 Fall From Other Slipping,Tripping, Or Stumbling Office Visit 05/20/2013 2:00p [facility] Mimi Velasquez, 611.72 Lump Or Mass SCREENING UNIT REGISTERED NURSE Breast Office Visit 03/25/2013 10:30a [facility] Mimi Velasquez, 611.71 Mastodynia SCREENING UNIT REGISTERED NURSE Office Visit 01/04/2013 11:30a Main Office Mimi Velasquez, 719.49 Pain Joint SCREENING UNIT REGISTERED NURSE Multiple Sites Office Visit 12/12/2012 10:45a Main Office Mimi Velasquez, 681.10 Cellulitis & SCREENING UNIT REGISTERED NURSE Abscess Toe Unspec Office Visit 10/08/2012 2:00p Main Office Ngozi Guillory, 466.0 Bronchitis Acute MANAGER HAIR Office Visit 09/23/2012 1:00p Main Office Marc Valdez 380.4 Impacted Kanu Godinez M.D. 465.9 URI Upper Respiratory Infections Acute Unspec Sites Office Visit 06/13/2012 1:40p Main Office Delia Spangler 599.0 UTI Urinary Tract Clayton Severino Infection Site Not Spec Office Visit 11/27/2011 10:00a [facility] Mimi Velasquez, V72.31 Routine Lathe Spotter SCREENING UNIT REGISTERED NURSE Examination Office Visit 10/29/2011 3:00p [facility] Isabel 465.9 URI Upper [place], Respiratory Afnp-C Infections Acute Unspec Sites Office Visit 10/24/2011 2:10p [facility] Alvarez Sim, 780.79 Malaise And M.D. Fatigue Other E906.4 Bite Nonvenomous Arthropod E906.3 Bite Other Animal Except Arthropod 911.4 Injury Superficial Insect Bite Trunk Nonvenomous W/O Infect Office Visit 10/10/2011 11:10a [facility] Alvarez Navas E906.3 Bite Other Clayton Sim Animal Except Arthropod 922.1 Contusion Chest Wall Office Visit 07/02/2011 2:00p Main Office Delia Spangler V70.0 Examination General Clayton Severino Medical Routine AT Health Care Facility V72.31 Routine Lathe Spotter Examination 782.0 Skin Sensation Disturbance 733.90 Bone & Cartilage Disorder Unspec Office Visit 06/20/2011 10:30a [facility] Judi Ingram, 782.0 Skin Sensation Afnp-C Disturbance Office Visit 01/17/2011 11:00a [facility] Rosangela carrillo 719.47 Pain Joint Ankle Clayton Allan & Foot 719.46 Pain Joint Lower Leg Office Visit 09/06/2009 1:15p Main Office Isabel Padilla, 611.72 Lump Or Mass Afnp-C Breast Plan of Treatment 07/25/2018 - Delia Severino M.D.Z01.818 Encounter for other preprocedural examinationComments:You should do fine with surgery.You have seen Dr. 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 Dr. Truong will do a cardiac clearance. EKG done at recent appointment with . Cxr done on 05/22/18M23.611 Other spontaneous disruption of anterior cruciate ligament oComments:If bloodwork normal, cleared for proposed surgery.AllComments:~B_~U_Medication Management~b_~u_ Patient Understands medications she's taking? Yes No Are there Barriers to Adherence? Yes No Has the patient been asked about herbal supplements and therapies, and OTC meds? Yes No
--- OUTSIDE RECORDS SUMMARY | 2018-08-03 11:12 | XMS REPORT | Continuity of Care Document ---
:1975 External Reference #:[id number] Author Name Nancy Syed Care Team Providers Name Role Phone Delia Severino MD Primary Care Physician Unavailable Payers Date Identification Numbers Payment Provider Subscriber Effective: 2011 Policy Number: [id number] [employer] Evon Moody PayID: [id number] [address] [address] [place] [address] Advance Directives Description No Information Available Problems Date Description Provider Status Onset: 02/12/2018 Ostium secundum type atrial septal defect Claudette Truong M.D. 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 Allergies, Adverse Reactions, Alerts Date Description Reaction Status Severity Comments 09/02/2013 Sulfa Antibiotics Active 09/09/2013 Latex Active Medications Medication Date Status Form Strength Qnty SIG Indications Ordering Provider Aspirin Adult Active Tablets DR 81mg 1 by Unknown Low Dose 000 mouth every day Keflex Hx Capsules 500mg 20caps 1 tab Berna 019 - by Clayton Echeverria mouth 019 four times a day for 5 days No Active Hx Unknown Medications 014 - 018 Immunizations Description No Information Available Vital Signs Date Vital Result Comment 07/07/2018 9:17am Height 67 inches 5'7" Weight 157.00 lb Heart Rate 62 /min Respiratory Rate 15 /min Body Temperature 97.2 F Pain Level 0 BMI (Body Mass Index) 24.6 kg/m2 06/29/2018 1:24pm Height 67 inches 5'7" Weight 157.00 lb Heart Rate 62 /min BP Systolic 110 mmHg BP Diastolic 70 mmHg Respiratory Rate 16 /min Body Temperature 96.9 F Pain Level 3 BMI (Body Mass Index) 24.6 kg/m2 06/11/2018 2:18pm Height 67 inches 5'7" Heart [...] Information Available Procedures Date Code Description Status 06/10/2018 72421 ECHO Transthoracic, Real-Time 2D With Doppler And Color Completed Flow 06/10/2018 43236 ECHO Transthoracic, Real-Time 2D With Doppler And Color Completed Flow 02/12/2018 86117 EKG Tracing & Interpretation Completed 12/08/2017 27808 Holter Monitor Review (24 hr)dr review & interp only Completed 12/05/2017 97511 ECG Monitor/Recording W/Visual Superimposition Scanning Completed 09/02/2013 33951 FX Patella Care Completed 04/02/2010 97923 Color Flow Doppler/Interp & Reprt Completed 04/02/2010 36362 Pulse Wave/Continuous-Interp.RPT Completed 04/02/2010 14719 Echocardiogram Completed 04/02/2010 27494 ECHO Transthorasic Realtime 2D W Doppler & Color Flow Hosp Completed Encounters Type Date Location Provider Dx Diagnosis Office Visit 07/07/2018 Orthopedic Bang Matos, S83.511A Sprain of 9:15a [facility] anterior cruciate ligament of right knee, init S83.221A Prph tear of medial meniscus, current injury, r knee, init Office Visit 06/29/2018 1:00p [facility] Bang Matos, M25.561 Pain in [facility] right knee M25.461 Effusion, right knee Office Visit 06/11/2018 2:00p [facility] Melodie Da Silva, S62.644D Nondisp fx of [facility] prox phalanx [facility] of r rng fngr, 7thD S62.642D Nondisp fx of prox phalanx of r mid fngr, 7thD M70.21 Olecranon bursitis, right elbow Office Visit 05/20/2018 1:00p [facility] Melodie Da Silva, S62.644A Nondisp fx of [facility] proximal [facility] phalanx of right ring finger, init S62.642A Nondisp fx of proximal phalanx of right middle finger, init Office Visit 02/12/2018 2:10p [facility] Claudette Truong, Q21.1 Atrial septal Of Rn Child M.D. defect R00.2 Palpitations K21.0 Gastro-esophageal reflux disease with esophagitis Office Visit 09/09/2013 8:30a [facility] Mahamed Tyler, 822.0 FX Patella Of [facility] 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 at [facility]07/07/2018 - [facility] Shawna, MDS83.511A Sprain of anterior cruciate ligament of right knee, initS83.221A Peripheral tear of medial meniscus , current injury, right kn
--- OUTSIDE RECORDS SUMMARY | 2018-08-03 11:12 | XMS REPORT | Continuity of Care Document ---
:1975 External Reference #:[id number] Author Name Lissette Linares Care Team Providers Name Role Phone Delia Severino MD Primary Care Physician Unavailable Payers Type Date Identification Numbers Payment Provider Subscriber Effective: Policy Number: [id number] [employer] Evon Moody 2011 PayID: [id number] [address] [address] [place] [address] Advance Directives Description No Information Available Problems Date Description Provider Status Onset: 02/12/2018 Ostium secundum type atrial septal defect Claudette Truong M.D. Active Onset: 07/07/2018 Current tear of medial cartilage AND/OR Bang Matos MD Active meniscus of knee Onset: 07/07/2018 Derangement of knee Bang Matos MD Active Family History Date Family Member(s) Problem(s) [...] Available Procedures Date Code Description Status 06/10/2018 03695 ECHO Transthoracic, Real-Time 2D With Doppler And Color Completed Flow 06/10/2018 65106 ECHO Transthoracic, Real-Time 2D With Doppler And Color Completed Flow 02/12/2018 82465 EKG Tracing & Interpretation Completed 12/08/2017 87900 Holter Monitor Review (24 hr)dr review & interp only Completed 12/05/2017 28811 ECG Monitor/Recording W/Visual Superimposition Scanning Completed 09/02/2013 53592 FX Patella Care Completed 04/02/2010 16447 Color Flow Doppler/Interp & Reprt Completed 04/02/2010 81601 Pulse Wave/Continuous-Interp.RPT Completed 04/02/2010 67722 Echocardiogram Completed 04/02/2010 83248 ECHO Transthorasic Realtime 2D W Doppler & Color Flow Hosp Completed Encounters Type Date Location Provider Dx Diagnosis Office Visit 06/11/2018 Orthopedic Melodie Da Silva, S62.644D Nondisp fx of 2:00p [facility] prox phalanx of r rng fngr, 7thD S62.642D Nondisp fx of prox phalanx of r mid fngr, 7thD M70.21 Olecranon bursitis, right elbow Office Visit 05/20/2018 1:00p [facility] Melodie Da Silva, S62.644A Nondisp fx of [facility] proximal [facility] phalanx of right ring finger, init S62.642A Nondisp fx of proximal phalanx of right middle finger, init Office Visit 02/12/2018 2:10p [facility] Claudette Truong, Q21.1 Atrial septal Of Varnish Melter M.D. defect R00.2 Palpitations K21.0 Gastro-esophageal reflux disease with esophagitis Office Visit 09/09/2013 8:30a [facility] Mahamed Tyler, 822.0 FX Patella Of [facility] M.D. 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 M.D. 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
[2018-08-03 11:22] LABS: Albumin 4.3 g/dL (3.2-5.2); Albumin/Globulin Ratio 1.8 (1-3); Calcium 9.1 mg/dL (8.6-10.3); EGFR Non-African American 74.4 (>60); Globulin 2.4 g/dL (2-4); Potassium 3.9 mmol/L (3.5-5.0); Total Bilirubin 0.4 mg/dL (0.2-1.0); Total Protein 6.7 g/dL (6.4-8.9)
[2018-08-03] MEDS ORDERED: Clopidogrel TAB* 75 MG PO ONE (15:39)
[2018-08-03] MEDS ORDERED: Clopidogrel TAB* 75 MG ONE (15:41)
[2018-08-03 16:54] LABS: HDL Cholesterol 43.9 mg/dL
[2018-08-03] MEDS ORDERED: Enoxaparin(*) 40 MG/0.4 ML SYR SUBCUT SCH (17:00)
--- NOTE | 2018-08-03 17:00 | CONS ---
CONSULTATION REPORT: DATE OF CONSULT: 08/03/18 PATIENT OF: Dr. Severino and Dr. Truong. HISTORY OF PRESENT ILLNESS: This is a 43-year-old woman who had acute onset of right-sided numbness and visual changes yesterday. She has had an episode of transient aphasia lasting 15 to 20 minutes back in 2009 or 2010, and was seen by Dr. Truong and had a PFO noted at that time. She was begun on aspirin. There was concern according to the patient that a backpack that she was wearing caused a blood clot in her shoulder that may had been the source of the TIA. She had seen Dr. Omalley who had ordered an EEG, which apparently was normal. This was done as an outpatient. I do not have Dr. Omalley's full notes from that visit at this time. She had done fine without any further neurological problems except for this summer when she had some episodes of lightheadedness, some chest palpitations. Yesterday morning at 10 o'clock, out of the blue, she developed right-sided numbness in her cheek and in her right arm. She is status post right ACL surgery a few days ago and did not notice any numbness in her leg but was not entirely sure. She said her right arm felt more heavy and slightly hard to use her crutch on that side but there was no overt weakness noted. It is unclear to her but she thought that the visual symptoms were more in the right eye than in either eye to the right side. The visual symptoms have resolved recently in the past few hours but the numbness has persisted. PAST MEDICAL HISTORY: She is in good general health with her only medical problems include the past episode of aphasia, the PFO and her right knee surgery. She also has a history of some GE reflux with esophagitis. SOCIAL HISTORY: She does not smoke, use drugs, or drink alcohol. She is single but lives with significant other. ALLERGIES: She is allergic to SULFA and LATEX. REVIEW OF SYSTEMS: Negative other than she has some mild anxiety at times, the palpitations as mentioned. There has been no headache, fever, or other symptoms. PHYSICAL EXAM: On exam, temperature 98.8, pulse 69, respirations 20, blood pressure 118/75. She is alert and oriented with normal speech and comprehension. Cranial nerves II through XII were normal with normal disks. There is no facial asymmetry. I cannot detect any visual field cut on exam to large objects this afternoon and she denies any visual symptoms at current time. She had no pronator drift. Fine motor control on either side on both hands was normal. She had intact strength bilaterally. Her right knee was in a brace. She could move her right foot up and down with 5/5 power. Sensation was decreased to light touch in her lower arm and hand and in the right side of her cheek is the only finding. Reflexes were 2+ and equal. Right knee was not tested. Chest: Clear. Cardiovascular: Regular rate and rhythm. Abdomen: Soft with positive bowel sounds. DIAGNOSTIC STUDIES/LAB DATA: I reviewed the MRI scan, which did show a right parietal, periventricular white matter lesion, otherwise unremarkable. CT scan was negative. Labs include normal CBC and CMP. IMPRESSION AND PLAN: I discussed the patient with Dr. Dowd and Dr. Davalos that Evon has 1 of the 3 possibilities - she could either have demyelinating disease, ischemic disease, or this could be related to anxiety. I think that the sudden onset of symptoms and the aphasia back in 2009 or 2010 lasting only 15 to 20 minutes, this could well be ischemia. It is unclear but possible that the patent foramen ovale could be the source, especially if she has a deep vein thrombosis. Her leg has been relatively immobile given her recent surgery. I may need to evaluate further for this and then adjust her blood thinning medicine if this looked like she had a deep vein thrombosis or stroke from her patent foramen ovale and we will need to consider whether the patent foramen ovale should be closed. If she has not had a hypercoagulable workup as well, it should be done if we think that this is ischemia. She will also getting an MRA with and without contrast of head and neck to evaluate for stroke further as well as a fasting lipid panel. She will be getting an MRI scan with and without contrast because the small right parietal lesion could easily be a demyelinating spot and it is possible that this episode yesterday was stroke like presentation of multiple sclerosis. It think that it would be hard to tying the episode 8 years ago with this just because the symptoms lasted so short and I think more likely this is ischemic disease, but it is impossible to know for sure with the information we had at this point. The MRI scan with and without contrast; if it showed enhancing new lesion, it would be supportive of demyelinating disease. We also should check a visual evoked response; if it showed evidence of optic neuritis, it would also be supportive of demyelinating disease as an alternative diagnosis. The other issue is that she had some palpitations this summer and depending on what we find, she may need further cardiac monitoring to make sure that there is no atrial arrhythmia as the cause of her stroke, but I think this is less likely and I would not presume to order that at this time until further workup is needed. It is also possible if we go down the demyelinating pathway that a spinal tap will be necessary but at this point, we do not have enough information to know whether we should be doing that in the near further or not. Lastly, it is possible with her minimal symptoms and negative MRI scan that this is anxiety, but I think that is a diagnosis of exclusion and much less likely to be the final diagnosis. Thank you for sharing her case. [id number]/[facility] #: [id number] ESHA
[2018-08-03] MEDS ORDERED: Gadobenate* (CONTRAST) 529 MG/ML 10 ML SDV IV ONE (18:23)
[2018-08-03] MEDS: Acetaminophen TAB* 325 MG PO PRN (19:15)
--- NOTE | 2018-08-03 19:36 | HP ---
CC: Dr. Severino * HISTORY AND PHYSICAL: DATE OF ADMISSION: 08/03/18 PROVIDER: Kayla Spencer NP PRIMARY CARE PROVIDER: Dr. Severino. ATTENDING PHYSICIAN WHILE IN THE HOSPITAL: Dr. Tiffany Davalos * (dictated by Kayla Spencer NP). CHIEF COMPLAINT: Right facial numbness, right arm numbness. HISTORY OF PRESENT ILLNESS: Ms. Moody is a 43-year-old female with a past medical history significant for TIA approximately 8 to 9 years ago, history of PFO, who presented to the emergency room with a complaint of right arm and right facial numbness that started at 10 a.m. yesterday. The patient also reports that she has blurred vision in the right eye. She denies any weakness. Denies any dizziness, headache. She denies any difficulty with speech or swallowing. The patient does report that she recently had ACL and meniscal repair on her right knee, of last week, and recently drove home from [facility] after her knee surgery, where she was in a car for approximately 5 hours. The patient denies any other recent illnesses. Denies fever, chills, unintended weight loss, chest pain, edema, cough, hemoptysis, or shortness of breath. She does report some mild nausea, but no vomiting, diarrhea, or abdominal pain. Denies any gross hematuria or dysuria. She does report numbness to the right arm and right face with right eye blurred vision. Denies any dysphagia. She does report right knee pain. She is status post right knee surgery last , 07/30/18. Skin, she does have 4 puncture wound sites noted around the right knee that are closed with sutures. There is no drainage from any of the puncture wound sites. There is no drainage from the surgical wound sites. She does have some mild erythema noted to the right inner knee. She does have some mild ecchymosis noted to the right triana and mild swelling noted to the right lower extremity. She denies any depression or anxiety. She was seen in consultation by Dr. Burroughs from Neurology in the emergency room. The patient had routine lab work drawn, which was within normal limits. She had a CT and an MRI of the brain, which did not show any acute infarct. Due to the concerns of TIA versus CVA, we were asked to see and evaluate her for admission. PAST MEDICAL HISTORY: Significant for: 1. TIA. 2. PFO. PAST SURGICAL HISTORY: Right ACL and meniscal repair on 07/30/18. HOME MEDICATIONS: 1. Aspirin 81 mg p.o. daily. 2. Vitamin C. 3. Vitamin D. 4. Tylenol as needed for pain. ALLERGIES: To SULFA and LATEX. FAMILY HISTORY: Grandfather with a history of an MD. Grandmother with a history of an MD. Father with a history of hypertension. No reported history of diabetes within the immediate family. Cancer; father with history of prostate cancer, maternal grandmother with bowel cancer, and grandparent with leukemia. SOCIAL HISTORY: The patient reports that she quit smoking approximately 12 years ago. Prior to that, she smoked for approximately 7 years, quarter pack a day. She does report that she drinks 2 to 3 glasses 2 to 3 nights a week, she has wine. She denies any illicit drug use. She is single. Surrogate decision maker in the event she is unable to make her own decisions is her mother, Anastasiia Moody. She is a full code. REVIEW OF SYSTEMS: A 14-point review of systems was completed. All pertinent positives were mentioned in the HPI. All others were negative. PHYSICAL EXAMINATION GENERAL: At this time, Ms. Moody is a 43-year-old female, sitting on the stretcher in the emergency room. She does not appear to be in any acute distress. VITAL SIGNS: Blood pressure 133/75, heart rate 68, respirations were 21, O2 saturation 99%, temperature was 98.8. HEENT: Head is atraumatic, normocephalic. Eyes: EOMs are intact. Sclerae anicteric and not pale. Pupils are equal and reactive to light at 2 mm. Oral mucosa appeared to be moist. No oropharyngeal erythema. NECK: Supple. LUNGS: Clear to auscultation bilaterally. No wheezes, rales, or rhonchi. CARDIAC: S1, S2. Regular rate and rhythm. No murmurs, rubs, or gallops. ABDOMEN: Soft and nontender. Bowel sounds are present x4. EXTREMITIES: Pedal pulses are +2 bilaterally. She does have limited range of motion to her right knee due to swelling and recent surgery. NEUROLOGIC: She is awake, alert, oriented x3. Speech is clear. Handgrips are equal. Cranial nerves II through XII are grossly intact. Tongue is midline. [id number]-ddmy is intact. No pronator drift is noted. There are no gross focal deficits. The patient does have some sensation deficit noted to her right cheek and her right upper arm. SKIN: She does have surgical incision sites noted to her right knee that are without drainage. She does have some mild erythema to the right anterior knee. DIAGNOSTIC STUDIES/LAB DATA: She had a CT of the brain. Radiologist's impression: No acute intracranial pathology. She had an MRI of the brain. Radiologist's impression: There is no restricted diffusion to suggest acute infarct. There is a small focus of elevation to T2- FLAIR signal within the right parietal periventricular white matter, which is likely incidental to be representing symptoms of right-sided numbness. This is nonspecific. Similar findings can be seen associated with migraine headaches as well as sequelae of previous infection or inflammation. Chronic small vessel ischemia or demyelination disease also within the differential, but considered less likely in the absence of appropriate clinical presentation. Further evaluation is recommended on clinical presentation. She had an electrocardiogram which showed sinus rhythm at a rate of 70. No ST or T- wave changes. ASSESSMENT AND PLAN: Ms. Moody is a 43-year-old female who presented to the emergency room with complaint of right facial and right arm numbness. We were asked to see and evaluate her due to the numbness. She will be admitted observation for: 1. Right-sided facial numbness and right arm numbness. I suspect this could be related to a transient ischemic attack. The patient was seen in consultation by Neurology in the emergency room who has recommended that the patient receive an EEG with VPE, an MRI of the brain with contrast, MRA of the head and neck, a transthoracic echocardiogram with bubble study, bilateral lower extremity Dopplers, a lipid profile and that the patient be placed on aspirin 81 mg and Plavix 75 mg p.o. daily. WE will do neuro checks, and monitor on telemetry. We will continue with the transient ischemic attack workup and further recommendations will be based on imaging results. 2. FEN: The patient can have a regular diet. 3. Code status: She is a full code. 4. DVT prophylaxis: I will encourage ambulation and lovenox subcut. TIME SPENT: Time spent on this admission was 60 minutes, greater than half that time was spent [id number] with the patient obtaining my history and physical, the other half of the time was spent going over my plan of care and implementing my plan of care. I have discussed this with my attending, Dr. Tiffany Davalos; she is in agreement with my plan. KAYLA SPENCER, PROFESSOR OF CHEMISTRY [id number]/[facility] #: [id number] ESHA
--- NOTE | 2018-08-04 00:25 | PN ---
Hospitalist Progress Note Date of Service: 08/04/18 Received called for radiology: Patient was found to have a DVT in the right leg. Dr. Burroughs was notified and recommended starting anticoagulation after hyper coagulable work is drawn. He also recommended contacting orthopedic surgeon Guido Patel in [facility] for recommendations on preference of anticoagulation therapy. Dr. Burroughs has recommended stopping aspirin and plavix prior to starting anticoagulation. Spoke to Jorge Reddy - states it is OK to start anticoagulation therapy and would prefer xarelto. He would like to be updated with patient out come office number [phone]. Spoke to pharmacy - Xarelto should be started 6 hours after last dose of lovenox - which will be 0100
[2018-08-04] MEDS: Rivaroxaban TAB(*) 15 MG PO SCH ×2 (02:01→13:50)
[2018-08-04] MEDS: Acetaminophen TAB* 325 MG PO PRN ×3 (02:01→16:45)
[2018-08-04 08:46] LABS: Urine Appearance Cloudy; Urine Bacteria Absent (Absent); Urine Bilirubin Negative (Negative); Urine Blood 2+ (Negative); Urine Color Yellow; Urine Glucose Negative (Negative); Urine Ketones Negative (Negative); Urine Nitrite Negative (Negative); Urine Protein Negative (Negative); Urine Red Blood Cell Trace(0-2/hpf) (Absent); Urine Specific Gravity 1.009 (1.010-1.030); Urine Squamous Epithelial Cell Present (Absent); Urine Urobilinogen Negative (Negative); Urine White Blood Cell 2+(11-20/hpf) (Absent)
[2018-08-04] MEDS ORDERED: Aspirin EC TAB* 81 MG TAB.EC PO SCH (09:00)
[2018-08-04] MEDS ORDERED: Clopidogrel TAB* 75 MG PO SCH (09:00)
--- NOTE | 2018-08-04 13:55 | ECHO ---
Patient: GEE BRADEN [facility] Rec#: [id number] : 1975 Date: 08/04/2018 Age: 43y Height: 170 cm / 66.9 in Weight: 68 kg / 149.9 lbs Sex: F BSA: 1.79 Room#: [facility] Admit Date#: 08/03/2018 Type: Inpatient Referring: Kayla Spencer Reading: Dontrell Phillips MD Mannequin Coloring Artist: Samantha Singh RDCS CC: ANNIE ISIDRO Transthoracic Echocardiogram Indication: TIA BP: 100/58 HR: 79 Rhythm: NSR Findings History: Palpitations, PFO. Technical Comments: The study quality is good. Completed at 1000. Left Ventricle: The left ventricular chamber size is normal. Global left ventricular wall motion and contractility are within normal limits. Left ventricular systolic function is at the lower limits of normal. The estimated ejection fraction is 50-55%. There is no consistent Doppler evidence of clinically significant diastolic dysfunction. Left Atrium: The left atrial chamber size is normal. Right Ventricle: Moderator Band present. The right ventricular cavity size is normal. The right ventricular global systolic function is normal. Right Atrium: The right atrial cavity size is normal. There is a patent foramen ovale with predominant dyzrw-qg-ifog shunting. A patent foramen ovale is demonstrated by color Doppler and agitated contrast. Aortic Valve: The aortic valve is trileaflet. There is no evidence of aortic valve thickening. There is no evidence of aortic regurgitation. There is no evidence of aortic stenosis. Mitral Valve: The mitral valve leaflets do not appear thickened. There is a trace of mitral regurgitation. There is no evidence of mitral stenosis. Tricuspid Valve: The tricuspid valve leaflets are normal. There is trace tricuspid regurgitation. Unable to estimate the right ventricular systolic pressure. There is no tricuspid stenosis. Pulmonic Valve: The pulmonic valve appears normal. There is a trace pulmonic regurgitation. There is no pulmonic stenosis. Pericardium: There is no significant pericardial effusion. Aorta: There is no dilatation of the ascending aorta. There is no dilatation of the aortic arch. The aortic root is normal in size. Pulmonary Artery: The main pulmonary artery appears normal. Venous: The inferior vena cava appears normal in size. There is a greater than 50% respiratory change in the inferior vena cava dimension. Contrast: Intravenous agitated saline contrast was used to assess intracardiac shunting. Images 92 and 93. Summary: There are no significant changes when compared to the previous study done on 04/02/2010 no overt sig changes Conclusions The left ventricular chamber size is normal. Left ventricular systolic function is at the lower limits of normal. The estimated ejection fraction is 50-55%. There is a patent foramen ovale with predominant [id number]-vf-[id number] shunting. A patent foramen ovale is demonstrated by color Doppler and agitated contrast. There is a trace of mitral regurgitation. There is trace tricuspid regurgitation. Measurements Name Value Normal Range RVIDd (AP) 2D 3.4 cm (0.9 - 2.6) RVDdMajor (2D) 3.5 cm (2.2 - 4.4) RAd ISD 4CH 4.7 cm (3.4 - 4.9) RA (A4C)W 3.6 cm (2.9 - 4.6) IVSd (2D) 0.9 cm (0.6 - 1) LVPWd (2D) 0.9 cm (0.6 - 1) LVIDd (2D) 5 cm (3.6 - 5.4) LVIDs (2D) 3.8 cm - LV FS (2D) 25 % (25 - 45) Aortic Annulus 2 cm (1.4 - 2.6) Ao root diameter (2D) 3 cm (2.1 - 3.5) Ascending Ao 2.9 cm (2.1 - 3.4) Aortic arch 1.8 cm (1.8 - 3.4) LA dimension (AP) 2D 3.4 cm (2.3 - 3.8) LAd ISD 4CH 5.3 cm (2.9 - 5.3) LA ISD 4CH W 4.1 cm (2.5 - 4.5) Name Value Normal Range LA ESV BP (A/L) index 31 ml/m2 - Name Value Normal Range MV E-wave Vmax 0.4 m/sec - MV deceleration time 243 msec - MV A-wave Vmax 0.4 m/sec - MV E:A ratio 1 ratio - LV septal e' Vmax 0.1 m/sec - LV lateral e' Vmax 0.12 m/sec - LV E:e' septal ratio 4 ratio - LV E:e' lateral ratio 3.3 ratio - Name Value Normal Range AV Vmax 1.4 m/sec - AV VTI 25 cm - AV peak gradient 7 mmHg - AV mean gradient 4 mmHg - LVOT Vmax 0.8 m/sec - LVOT VTI 14 cm - LVOT peak gradient 2 mmHg - LVOT mean gradient 2 mmHg - SOPHIE Vmax 1 m/sec - Name Value Normal Range IVC diameter 1.9 cm - Name Value Normal Range PV Vmax 0.9 m/sec - PV peak gradient 3 mmHg - WA end-diastolic Vmax 0.8 m/sec - PA end-diastolic pressur3 mmHg -
[2018-08-04] MEDS ORDERED: Polyethylene Glycol 3350* 17 GM PACKET PO PRN (15:23)
--- NOTE | 2018-08-04 16:11 | EEG ---
ELECTROENCEPHALOGRAPHY: DATE OF STUDY: 08/04/18 - ROOM #443 PATIENT OF: Dr. Spencer. CLINICAL PROBLEM: This is a 43-year-old woman being evaluated for an episode of right-sided numbness facial and blurry vision in the right eye. MEDICATIONS: Include: 1. Xarelto. 2. Tylenol. REPORT: With the patient awake, background cerebral activity consisted of moderate amplitude, posterior dominant 10 to 11 Hz rhythm. The patient never falls asleep. There is somewhere left frontocentral slowing. No clear-cut epileptiform potentials were noted. CLINICAL IMPRESSION: This awake EEG is abnormal only for some brief left frontotemporal slowing, nonspecific ST etiology, underlying ischemia would be in the differential. [id number]/[facility] #: [id number] [facility]
--- NOTE | 2018-08-04 16:20 | EEG ---
VISUAL EVOKED RESPONSE: DATE OF STUDY: 08/04/18_ - ROOM #443 DATE OF DICTATION: 08/04/18 PATIENT OF: Dr. Spencer and Dr. Burroughs. HISTORY: This is a 43-year-old woman being evaluated for visual deficits in the right eye, to evaluate for optic neuritis. MEDICATIONS: Include: 1. Xarelto. 2. Tylenol. INTERPRETATION: P100 in the left eye latency is within normal limits and has normal morphology 2. In the right eye, P100 is normal latency and morphology 3. No significant deficits between the left and right eye are noted. IMPRESSION: This visual evoked response is within normal limits. [id number]/[facility] #: [id number] [facility]
[2018-08-04 16:25] VITALS: BP 111/75
--- NOTE | 2018-08-04 21:28 | PN ---
PROGRESS NOTE: DATE OF SERVICE: 08/04/18 HISTORY: This is a neurological followup on this 43-year-old woman. She still has her numbness, but her visual symptoms have resolved. She has had no shortness of breath, headache, or weakness. I was called last night after she was discovered to have DVT and recommended anticoagulation, but to confirm with the orthopedist which would be the preferred anticoagulant given her recent surgery. She was started on Xarelto 15 mg q.12 hours. She was also on MiraLAX for constipation. Her aspirin and Plavix were discontinued. PHYSICAL EXAMINATION: She is afebrile. Temperature 98.2, pulse 76, respirations 16, blood pressure 111/75. She is alert and oriented with normal speech and comprehension. Cranial nerves II through XII are intact. Motor exam revealed normal tone, strength. She reached for objects smoothly. Chest clear. Cardiovascular: Regular rate and rhythm. Abdomen: Soft with positive bowel sounds. DIAGNOSTIC DATA: Her MRA of head and neck was normal. Her MRI scan with contrast showed no enhancing lesions. Her venous Doppler showed deep vein thrombosis involving the peroneal vein and very deep vein. Her visual evoked response is normal. Her EEG showed some brief left temporal slowing of unclear significance. Evon's workup revealed deep vein thrombosis which given her PFO makes it likely that this is a small stroke that is visualized on MRI scan and this is a paradoxical emboli going to the brain. There is no evidence that her visual symptoms were related to demyelinating disease based on her visual evoked response, there is no plaque on contrast MRI scan. Given the fact that she has DVT with PFO and prior transient aphasia, this is most consistent with a small stroke that is seen on MRI. She needs to continue her anticoagulant. I have spoken to Dr. Truong, who is her car shagger, who will be putting plans for having a PFO closure done. I will be seeing her in a month in followup. [id number]/[facility] #: [id number] [facility]
--- NOTE | 2018-08-05 00:21 | DS ---
CC: Dr. Delia Severino; Dr. Claudette Truong; Dr. Brian Burroughs * DISCHARGE SUMMARY: DATE OF ADMISSION: 08/03/18 DATE OF DISCHARGE: 08/04/18 PRIMARY CARE PROVIDER: Dr. Delia Severino. BOAT DISPATCHER: Dr. Claudette Truong. NEUROLOGIST: Dr. Brian Burroughs. ATTENDING PHYSICIAN: Vidya Borges MD * (Dictated by RYANNE Rodriguez) PRIMARY DIAGNOSES: 1. Transient ischemic attack. 2. Deep venous thrombosis. SECONDARY DIAGNOSES: 1. Transient ischemic attack, approximately 8 to 9 years ago. 2. History of patent foramen ovale. STUDIES WHILE IN THE HOSPITAL: 1. Brain CT, 08/03/18. Impression: No acute intracranial pathology. 2. Brain MRI, 08/03/18. Impression: There is no restricted diffusion to suggest acute infarct. Small focus of elevated T2/FLAIR signal within the right parietal periventricular white matter, which is likely incidental to the presenting symptom of right-sided numbness. This is nonspecific. Similar findings can be seen in association with migraine headaches and as a sequelae of previous infection or inflammation, chronic small vessel ischemia and demyelinating disease is also within the differential but are considered less likely in the absence of the appropriate clinical presentation. Further evaluation should be based on clinical characteristics. 3. Brain MRI, 08/03/18, with contrast. Impression: No acute findings. 4. Chest thoracic echocardiogram, 08/03/18. Conclusion: The left ventricular chamber size is normal. Left ventricular systolic function is at the lower limits of normal. The estimated ejection fraction is 50% to 55%. There is a patent foramen ovale with predominant jwjeu-pa-sjac shunting. A patent foramen ovale is demonstrated by color Doppler and agitated contrast. There is trace mitral regurgitation. There is trace tricuspid regurgitation. 5. Head MRA, 08/03/18. Impression: No acute abnormality. 7. Neck MRA, 08/03/18. Impression: No hemodynamically significant stenosis. 8. Venous Doppler, right lower extremity, 08/03/18. Findings: Deep venous thrombosis involving the peroneal vein. The common femoral, proximal profunda femoral, and popliteal veins are patent without thrombus. Normal Doppler waveform, normal compressibility and/or augmentation response. Right superficial veins unremarkable. Saphenofemoral junction is patent without thrombus. 9. Electroencephalogram, 08/04/18. This visual evoked response is within normal limits. This awake EEG is abnormal only for some brief left frontotemporal slowing. Nonspecific ST etiology. Underlying ischemia would be in the differential. DISCHARGE MEDICATIONS: Home medications: 1. Acetaminophen 500 mg p.o. q. 6 hours p.r.n. pain. 2. Aspirin 81 mg p.o. daily. New home medications: 1. Rivaroxaban 15 mg p.o. q. 12 hours. HISTORY OF PRESENT ILLNESS/HOSPITAL COURSE: Ms. Moody is a 43-year-old female with a past medical history as described above, who presented to the ER on with complaints of right facial and right arm numbness that started the following day. She states that her vision is blurred in the right eye when she looks up close. She denies numbness elsewhere, weakness, difficulty swallowing or talking. She has a history of a right ACL and meniscus repair, which occurred on in [facility]. She drove to and from [facility] in approximately 5-hour car ride. The patient states that she was not placed on any form of anticoagulation prior to or postoperatively. While in the emergency room, the patient was evaluated. Neurology consult was obtained. A lipid panel was ordered that was within normal limits. Dr. Burroughs from Neurology was consulted on the patient. His workup and recommendations were followed and multiple CAT scans and MRIs and MRAs were obtained as well as blood work to check the patient for hypercoagulable state. The patient was admitted to the hospital; it was discovered that she had a right lower extremity DVT as well as PFO which was previously known. The patient was placed on rivaroxaban 15 mg p.o. q. 12 hours. Her hypercoagulability studies are still pending at the time of discharge. Ms. Moody is stable for discharge. The patient denies chest pain, shortness of breath, cough, or fever. She denies abdominal pain, nausea, vomiting, diarrhea, or constipation. The patient continues to complain of occasional headache. She also reports that she feels numbness on the right side of her face, although she does have sensation and motor capabilities. The patient states that she feels that her right arm is weaker than her left. She continues to complain of right knee pain. PHYSICAL EXAMINATION: Vital signs are temperature of 98.2, heart rate is 76, respiratory rate is 16, oxygen saturation is 100% on room air, blood pressure is 111/75. General: Ms. Moody is a well-developed, well-nourished athletic middle- aged white woman, who is sitting up in bed with the right extremity elevated. She appears to be in no acute distress although she does appear anxious. HEENT: Visual hernandez are grossly intact. Pupils are equally round and reactive to light. Extraocular movements are intact. Sclerae are without icterus. Hearing is grossly intact. Oral mucous membranes are moist and without lesions. Pharynx is clear. Neck with full range of motion. Thyroid is not palpable. The trachea is at midline. No lymphadenopathy. Respiratory: The patient has symmetrical chest expansion with no use of accessory muscles. Lungs are clear to auscultation. No rhonchi, wheezes, or rubs. Cardiovascular : Regular rate and rhythm. S1 and S2 present. No murmurs, rubs, or gallops. No JVD. Abdomen: Bowel sounds in all quadrants. Abdomen is soft and nontender to palpation. There is no hepatosplenomegaly. Musculoskeletal: Full range of motion with no pain or deformities. Extremities: Skin is warm and smooth bilaterally. There is no edema, no clubbing or cyanosis. The right knee is wrapped with a clean dry intact dressing. There is some ecchymosis to the right lower leg. No palpable cords in bilateral lower extremities. Radial and pedal pulses are 2+ bilaterally. Neuro: Awake, alert, and oriented x3. Cranial nerves II through XII are grossly intact. The patient is able to move all of her extremities. Motor strength is 5/5 in bilateral upper extremities. DISCHARGE PLAN: Ms. Moody will be discharged home. ACTIVITY: As tolerated. DIET: Heart healthy. MEDICATIONS: As above. EDUCATION: 1. Follow up with primary care provider in 4 to 7 days regarding recent hospital stay. 2. Follow up with Dr. Truong on 08/10/18, at 4 p.m. regarding PFO. 3. Follow up with Dr. Burroughs in 1 month regarding this hospitalization as well as hypercoagulability, blood work results. 4. Continue Xarelto q.12 hours. Next dose is scheduled for 2 a.m. 5. Return to the ER or nearest hospital if she experiences any worsening of symptoms, shortness of breath, palpitations, lightheadedness, dizziness, chest discomfort, high fevers, chills, night sweats, loss of consciousness, or any other worrisome sign or symptom. This is a summarized report of a complex medical history and hospital stay. For further details, please see the entire medical record. TIME SPENT: Approximately 45 minutes were spent on this discharge; greater than half that time was spent [id number] with the patient discussing discharge plans and instructions. RYANNE ARANDA [id number]/[facility] #: [id number] [facility]
[2018-08-06 17:09] LABS: Phospholipid Ab IgG < 9.4 GPL
== END 2018-08-04 18:09 | disposition home or self-care (01) ==
LOC: ED 10:20 → MEDTELE 16:28
PROVIDERS: ADMIT Internal Medicine; ATTEND Internal Medicine
DX: G45.9 Transient cerebral ischemic attack, unspecified (principal); I82.4Z9 Acute embolism and thrombosis of unspecified deep veins of unspecified distal lower extremity; H53.8 Other visual disturbances; R20.0 Anesthesia of skin; Z86.73 Personal history of transient ischemic attack (TIA), and cerebral infarction without residual deficits; Z87.74 Personal history of (corrected) congenital malformations of heart and circulatory system; Z79.82 Long term (current) use of aspirin; Z88.2 Allergy status to sulfonamides; Z87.891 Personal history of nicotine dependence
CPT/HCPCS: 36415; 70450; 70544; 70549; 70551; 70552; 80053; 80061; 81003; 81015; 81241; 83520; 83605; 84484; 85025; 85300; 85302; 85303; 85306; 86038; 86147; 87086; 93005; 93306; 95816; 95930; 96372; 99284; A9270-GY; A9577; G0378; J1650

== ENCOUNTER 2019-05-03 11:50 | Emergency (ER) | payer BC ==
--- NOTE | 2019-05-03 13:56 | ED ---
Neurological HPI - HPI Summary HPI Summary: This pt is a 43 y/o female [facility]/o right facial and right arm tingling and numbness since 3 days ago. Pt reports the tingling is intermittent but it is there most of the time. Pt states she has had these symptoms in the past and was diagnosed with a TIA in 08/03/18. Pt was placed on Xarelto until October or November of 2018 because she weaned herself off Xarelto as she was getting side effects and couldn't get a hold of the immigration officer. Pt didn't follow up with a neurologist either. She states she saw art coordinator, Dr. López, 1 week ago on 04/26/19 for a routine follow up and had blood drawn for a blood clotting factor. She was placed back on 10 mg of Xarelto and she has been taking it since 04/27/19. Denies fever, chest pain, SOB, nausea, vomiting. Pt notes she has hx of PFO and needs surgery for this. She is followed up by Dr. Truong, immigration officer, but states it is difficult to get in touch with her. She denies any recent travel aside from [place] in January 2019 without any problems. - History of Current Complaint Chief Complaint: EDNeurologicalDeficit Stated Complaint: RIGHT SIDE NUMBESS Time Seen by Provider: 05/03/19 13:45 Hx Obtained From: Patient Hx Last Menstrual Period: 10/25/17 Onset/Duration: Started days ago, Still Present Timing: Constant Current Severity: Mild Neurological Deficit Location: Facial - right sided, RUE Pain Intensity: 0 Pain Scale Used: 0-10 Numeric Character: Numbness/Tingling Aggravating: Nothing Alleviating: Nothing Associated Signs and Symptoms: Positive: Numbness. Negative: Nausea/Vomiting, Fever, Chest Pain, Shortness of Breath Similar Episode/Dx as: TIA in 08/03/18 - Allergy/Home Medications Allergies/Adverse Reactions: Allergies Allergy/AdvReac Type Severity Reaction Status Date / Time latex Allergy Rash Verified 05/03/19 11:55 Sulfa (Sulfonamide Allergy Rash Verified 05/03/19 11:55 Antibiotics) Home Medications: Home Medications Cholecalciferol TAB* [Vitamin D TAB*] 1,000 units PO DAILY 05/03/19 [History Confirmed 05/03/19] Multivit-Min/Folic Acid/Biotin [Hair, Skin and Nails Caplet] 1 each PO DAILY [History Confirmed 05/03/19] Rivaroxaban TAB(*) [Xarelto 15 mg(*)] 10 mg PO DAILY 05/03/19 [History Confirmed 05/03/19] PMH/Surg Hx/FS Hx/Imm Hx Endocrine/Hematology History: Denies: Hx Diabetes, Hx Thyroid Disease Cardiovascular History: Reports: Hx Deep Vein Thrombosis, Other Cardiovascular Problems/Disorders - 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 , PFO Denies: Hx Hypercholesterolemia, Hx Hypertension, Hx Pacemaker/ICD, Hx Peripheral Vascular Disease History: Denies: Hx Renal Disease Musculoskeletal History: Denies: Hx Arthritis, Hx Rheumatoid Arthritis, Hx Osteoporosis Sensory History: Denies: Hx Cataracts, Hx Contacts or Glasses, Hx Glaucoma, Hx Hearing Aid Opthamlomology History: Denies: Hx Cataracts, Hx Contacts or Glasses, Hx Glaucoma Neurological History: Reports: Hx Transient Ischemic Attacks (TIA) Denies: Hx Headaches, Hx Seizures Psychiatric History: Denies: Hx Anxiety, Hx Depression, Hx Panic Disorder - Surgical History Surgery Procedure, Year, and Place: rt acl repair Infectious Disease History: No Infectious Disease History: Denies: Traveled Outside the [place] in Last 30 Days - Family History Known Family History: Positive: Cardiac Disease, Hypertension, Blood Disorder - blood clot - Social History Alcohol Use: Rare Hx Substance Use: No Substance Use Type: Reports: None Hx Tobacco Use: Yes Smoking Status (MU): Former Smoker Review of Systems Negative: Fever Negative: Chest Pain Negative: Shortness Of Breath Negative: Vomiting, Nausea Positive: Paresthesia, Numbness All Other Systems Reviewed And Are Negative: Yes Physical Exam - Summary Physical Exam Summary: VITAL SIGNS: Reviewed. GENERAL: Patient is a well-developed and nourished female who is lying comfortable in the stretcher. Patient is not in any acute respiratory distress. HEAD AND FACE: No signs of trauma. No ecchymosis, hematomas or skull depressions. No sinus tenderness. EYES: PERRLA, EOMI x 2, No injected conjunctiva, no nystagmus. No photophobia. EARS: Hearing grossly intact. Ear canals and tympanic membranes are within normal limits. MOUTH: Oropharynx within normal limits. NECK: Supple, trachea is midline, no adenopathy, no JVD, no carotid bruit, no c- spine tenderness, neck with full ROM. No meningeal signs, no Kernig's or brudzinskis signs. CHEST: Symmetric, no tenderness at palpation. LUNGS: Clear to auscultation bilaterally. No wheezing or crackles. CVS: Regular rate and rhythm, S1 and S2 present, no murmurs or gallops appreciated. ABDOMEN: Soft, non-tender. No signs of distention. No rebound, no guarding, and no masses palpated. Bowel sounds are normal. EXTREMITIES: FROM in all major joints, no edema, no cyanosis or clubbing. NEURO: Alert and oriented x 3. No acute neurological deficits. Speech is normal and follows commands. NIH score is 0. SKIN: Dry and warm. GCS: 15 Triage Information Reviewed: Yes Vital Signs On Initial Exam: Initial Vitals Temp Pulse Resp BP Pulse Ox 97.8 F 69 16 146/99 98 05/03/19 11:52 05/03/19 11:52 05/03/19 11:52 05/03/19 11:52 05/03/19 11:52 Vital Signs Reviewed: Yes Procedures - Sedation Patient Received Moderate/Deep Sedation with Procedure: No Diagnostics - Vital Signs Vital Signs Temp Pulse Resp BP Pulse Ox 05/03/19 11:52 97.8 F 69 16 146/99 98 - Laboratory Result Diagrams: 05/03/19 14:29 05/03/19 14:29 Lab Statement: Any lab studies that have been ordered have been reviewed, and results considered in the medical decision making process. - CT Brain CT CT Interpretation Completed By: Radiologist Summary of CT Findings: IMPRESSION: Normal CT of the brain. If there is strong clinical suspicion for acute ischemic event, MRI of the brain is far superior to discern acute infarction. Dr. Pederson has reviewed this report. - EKG 14:56 Cardiac Rate: Bradycardia - at 59 bpm EKG Rhythm: Sinus Bradycardia EKG Comparison: No Significant Change - similar to prior EKG on 08/03/18. Summary of EKG Findings: EKG at 14:56 shows sinus bradycardia at [address] elevations. Similar to prior on 08/03/18. - Additional Comments Diagnostic Additional Comments: Brain MRI, as read by radiologist IMPRESSION: The FLAIR images demonstrates tiny nonspecific area of signal abnormality in the right periventricular white matter in the right posterior parietal lobe. This likely represents area of minor microvascular change with no enhancement or change since previous exam. No restriction of diffusion is noted. The remainder of the exam is unchanged from previous exam. Dr. Pederson has reviewed this report. NIH Scale - NIH Scale Level of Consciousness: Alert/Keenly Responsive Ask Patient the Month and His/Her Age: Both Correct Ask Pt to Open/Close Eyes and Diamond Wheel Molder/Release Non-Paretic Hand: Both Correctly Best Gaze (Only Horizontal Eye Movement): Normal Visual Field Testing: No Visual Loss Facial Paresis-Pt to Smile & Close Eyes or Grimace Symmetry: Normal/Symmetrical Motor Function - Right Arm: No Drift-Holds 10 Seconds Motor Function - Left Arm: No Drift-Holds 10 Seconds Motor Function - Right Leg: No Drift-Holds 10 Seconds Motor Function - Left Leg: No Drift-Holds 10 Seconds Limb Ataxia-Must be out of Proportion to Weakness Present: Absent Sensory (Use Pinprick to Test Arms/Legs/Trunk/Face): Normal Best Language (Describe Picture, Name Items): No Aphasia Dysarthria (Read Several Words): Normal Extinction and Inattention: No Abnormality Total Score: 0 Re-Evaluation - Re-Evaluation First Eval Re-Evaluation Time: 16:57 Comment: Dr. Pickard evaluated pt in the ED and recommends a brain MRI. Course/Dx - Course Assessment/Plan: This patient is a 43-year-old female who presents to the emergency department with a chief complaint of tingling and numbness in the right side of the face and right upper extremity. Patient has a history of a TIA and a PFO. She was supposed to be taking eliquis however she stopped taking by herself in November or December. However a week ago she saw Dr. López from oncology and she recommended to restart the medication. Therefore she has been taking this medication for 6 days. Patient had a brain CT, brain MRI, MRA of the brain and neck and it was read as negative. Blood test results without any significant abnormality. Head CT impression: No acute pathology. I discussed my physical exam and findings with Dr. Pickard from neurology. He came and examined the patient. He recommends a brain MRI. Brain MRI IMPRESSION: The FLAIR images demonstrates tiny nonspecific area of signal abnormality in the right periventricular white matter in the right posterior parietal lobe. This likely represents area of minor microvascular change with no enhancement or change since previous exam. No restriction of diffusion is noted. The remainder of the exam is unchanged from previous exam. Dr. Pickard recommends for the patient to be discharged home with follow-up from her primary care physician. He recommends for the patient to start aspirin 325 mg a day and she can stop taking the eliquis. At this point, I discussed all the findings and test results with the patient. Patient was instructed to return to the emergency room immediately if any of the symptoms return or worsen. Patient understand and agree. Neurological exam before discharge: Patient is alert and oriented x 3. No acute neurological deficits. Patient's vital signs are stable. Patient is to follow up with her PCP in the next 2 3 days. She understands and agrees. Plan of care was discussed with the patient and patient understands and agrees with the plan of care. All questions were answered at patient satisfaction. There were no further complaints or concerns. - Differential Dx Differential Diagnoses Neuro: Positive: Carbon Monoxide Poisoning, Cerebrovascular Accident, Headache, Migraine, Transient Ischemic Attack - Diagnoses Provider Diagnoses: Arm paresthesia, right, Facial paresthesia - Physician Notifications Discussed Care Of Patient With: Lary Pickard Time Discussed With Above Provider: 15:57 Instructed by Provider To: Other - Discussed the case with Dr. Pickard, neurologist, who will come see the pt in the ED. [18:47] Discussed with Dr. Pickard, neurologist, who recommends discharging pt home and starting pt on aspirin 325 mg daily. Discharge ED - Sign-Out/Discharge Documenting (check all that apply): Patient Departure - Discharge home - Discharge Plan Condition: Stable Disposition: HOME Patient Education Materials: Paresthesia (ED) Referrals: Dionisio Lockwood MD [Medical Doctor] - Lary Pickard MD [Medical Doctor] - Delia Severino MD [Primary Care Provider] - Additional Instructions: Start taking aspirin 325 mg a day. FOLLOW UP WITH YOUR NEUROLOGIST and PRIMARY CARE PROVIDER IN 2-3 DAYS. RETURN TO THE EMERGENCY DEPARTMENT FOR ANY WORSENING OR NEW SYMPTOMS. - Billing Disposition and Condition Condition: STABLE Disposition: Home - Attestation Statements Document Initiated by Scribe: Yes Documenting Scribe: Kenna Medina Provider For Whom Scribe is Documenting (Include Credential): Dariusz Pederson MD Scribe Attestation: Kenna Nails scribed for Dariusz Pederson MD on 05/04/19 at 0820. Scribe Documentation Reviewed: Yes Provider Attestation: The documentation as recorded by the scribeKenna accurately reflects the service I personally performed and the decisions made by me, Dariusz Pederson MD Status of Scribe Document: Viewed
[2019-05-03 14:43] LABS: ABS Lymphocytes 1.7 10^3/ul (1.0-4.8); ABS Monocytes 0.9 10^3/ul (0-0.8); ABS Neutrophils 4.3 10^3/ul (1.5-7.7); Eosinophil % 0.2 %; Hematocrit 43 % (35-47); Hemoglobin 14.3 g/dL (12.0-16.0); Lymphocyte % 24.9 %; Mean Corpuscular HGB Conc 34 g/dL (31-36); Mean Corpuscular Hemoglobin 31 pg (27-31); Mean Corpuscular Volume 93 fL (80-97); Mean Platelet Volume 8.3 fL (7.4-10.4); Platelet Count 218 10^3/uL (150-450); Red Blood Count 4.57 10^6 /uL (3.70-4.87); Red Cell Distribution Width 13 % (10-15)
[2019-05-03 15:00] LABS: Activated Partial Thrombo Time 30.3 seconds (26.0-38.0); INR 1.21 (0.82-1.09)
[2019-05-03 15:07] LABS: HCG Pregnancy < 0.60 mIU/mL
[2019-05-03 15:10] LABS: Albumin 4.5 g/dL (3.2-5.2); Anion Gap 7 mmol/L (2-11); CO2 Carbon Dioxide 26 mmol/L (22-32); Calcium 9.4 mg/dL (8.6-10.3); Chloride 105 mmol/L (101-111); Potassium 3.6 mmol/L (3.5-5.0); Sodium 138 mmol/L (135-145)
[2019-05-03 15:16] LABS: ALT 16 U/L (7-52); AST 24 U/L (13-39); Albumin/Globulin Ratio 1.6 (1-3); Alkaline Phosphatase 49 U/L (34-104); BUN/Creatinine Ratio 21.7 (8-20); Blood Urea Nitrogen 18 mg/dL (6-24); Cholesterol 183 mg/dL; EGFR African American 91.2 (>60); EGFR Non-African American 75.4 (>60); Globulin 2.8 g/dL (2-4); Glucose 92 mg/dL (70-100); HDL Cholesterol 59.2 mg/dL; LDL Cholesterol 106 mg/dL; Total Protein 7.3 g/dL (6.4-8.9); Triglycerides 90 mg/dL
[2019-05-03 18:00] LABS: TSH (Thyroid Stimulating Horm) 2.18 mcIU/mL (0.34-5.60)
[2019-05-03 19:15] VITALS: BP 129/71
--- NOTE | 2019-05-03 20:31 | CONS ---
NEUROLOGY CONSULTATION NOTE: DATE OF CONSULT: 05/03/19 CONSULTING PHYSICIAN: Dr. Pederson. REASON FOR CONSULT: Right facial numbness. CHIEF COMPLAINT: Right facial numbness. HISTORY OF PRESENT ILLNESS: Ms. 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 The symptoms started during the afternoon while she was in a session with a student. She had the numbness throughout the weekend. She presented today for further evaluation. She denied any symptoms of slurred speech or visual disturbance. She has some heaviness in the right arm, but because she was racking the leaves all day yesterday using the right upper extremity. 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 According to the patient, in 2009, she had symptoms of language dysfunction that lasted approximately 5 minutes. This was accompanied by severe headaches. She underwent extensive workup for stroke and it was reported to be negative. In July 2018, the patient had a knee surgery in [facility]. She was minimally mobile for 2 days and drove back 4 hours to [place]. Four days after the surgery, she developed numbness of the right arm and right face. She also had blurred vision. She was evaluated by Dr. Burroughs in July 2018. An extensive evaluation included MRI of the brain with and without contrast, MRA head, MRA neck, and transthoracic echo. The workup was unremarkable except for she was found to have evidence of PFO with right to left shunting. Furthermore, she had a DVT that was discovered at that time. She was treated with Xarelto. She had complications with Xarelto that included menorrhagia and chest tightness. She eventually weaned herself off Xarelto and started taking aspirin 81 mg [address] She saw Dr. López last week. Due to the recurrent TIAs like symptoms in the setting of PFO, she was started on Xarelto 10 mg daily. The patient stated that since starting Xarelto, she has recurrence of the symptoms of chest and neck tightness. She does not want to continue taking the medication. She was concerned that she is going to have symptoms of menorrhagia. Another option was to place her on aspirin 162 mg daily until she sees her ship's master who would refer her to UR to close the PFO. The patient wants to be switched to aspirin therapy. The patient had an EEG in July that showed no seizure activity. I reviewed the records from [facility] and reviewed Dr. López's consultation note from last week. PAST MEDICAL HISTORY: DVT, TIA, headaches. PAST SURGICAL HISTORY: Left ACL repair. FAMILY HISTORY: No evidence of stroke. Her 12-year-old daughter had a seizure , but with no further recurrence. SOCIAL HISTORY: She is single. 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 She denies tobacco use. She denied any oral contraceptive use. She drinks occasionally. She has a 12-year-old daughter. REVIEW OF SYSTEMS: A 14-point review of systems was obtained and otherwise negative except for what was mentioned in the HPI. PHYSICAL EXAM: Vitals: Temperature of 97.8, pulse of 69, respiratory rate of 16, oxygen saturation of 98%, blood pressure of 146/99. General: Well- nourished, well- developed female in no acute distress. She is well built. Head: Atraumatic and normocephalic without any obvious abnormality. Neck is supple and symmetrical with no carotid bruits. Respiratory: Clear to auscultation bilaterally. Cardiovascular: Regular rate and rhythm with normal S1 and S2. Extremities: Normal range of motion with no cyanosis. Skin: No skin lesions or lacerations. Psych: Normal affect and mood. Easy to establish rapport. Neurological Examination: Mental Status: Awake, alert, and oriented to person, place, time, and general circumstances. Speech and language including expression, repetition, and comprehension were assessed and found to be normal. Cranial Nerves: Pupils are equal, round, and reactive to light. Extraocular muscles are intact. There is no facial asymmetry. There is reduced sensation to the V2 distribution on the right side of the face. Motor Examination: 5/5 strength in the upper and lower extremities. Normal tone throughout. No fasciculation. Sensation is intact throughout the extremities. Reflexes are 2+ throughout with downgoing plantar responses. Coordination: Normal [id number] and [id number] testing bilaterally. Gait: Normal stance and gait. No ataxia. DIAGNOSTIC STUDIES/LAB DATA: The patient had a CT head here without contrast that showed no evidence of acute intracranial abnormality. WBC of 7, hemoglobin of 14, hematocrit of 43, platelet count of 218. INR is 1.21, APTT is 30. Sodium 138, potassium 3.6, chloride 105, carbon dioxide 26, anion gap of 7. LDL cholesterol is 106, HDL is 59, total cholesterol of 183. ASSESSMENT AND RECOMMENDATION: Mrs. Evon Moody is a 43-year-old female who has a known patent foramen ovale, who has recurrent transient neurological deficits. She had the first language dysfunction in 2009 that was thought to be related to a complicated migraine. She then had right-sided paresthesias with negative MRI imaging that was thought to be related to a small stroke that was not seen on MRI in the setting of a deep vein thrombosis and patent foramen ovale. She now presents with recurrent, but mild symptoms of right facial numbness, similar to what she had in July 2018, but without the right upper extremity symptoms. Differential diagnosis here is small embolic stroke to the left postcentral gyrus involving the facial homunculus. Other differential diagnosis such as Lyme or vitamin B12 deficiency should be excluded. NIH stroke scale is 1 for loss of sensation on the right side of the face. She is not a candidate for IV tPA or mechanical thrombectomy as she presented outside the therapeutic window. RECOMMENDATIONS: In term of the anticoagulation therapy, the patient is having complications with Xarelto, one being history of menorrhagia and second being chest tightness a few days after starting the medication. She had the same reaction when she started the medication in July. She would like to be off the Xarelto. I recommend starting her on aspirin 325 mg daily for 30 days and reducing the aspirin to 162 mg daily, thereafter. I also recommend starting her on pravastatin 40 mg nightly. She should follow up with Dr. Burroughs. Dr. James Arvizu does PFO closures in [place] (closer to the patient). I have ordered an MRI of the brain without contrast to be done in the ER, as the patient had extensive stroke workup early this year and we don't need to repeat that. The patient would prefer not to stay here because she has a 12- year-old daughter at home who she needs to go home to. Furthermore, if she had a stroke, this will not change the medical management as we have maximized the secondary stroke measures which include aspirin and pravastatin therapy. Maintain her blood pressure with a normal range. She does not need any PT/OT or MAIL FORWARDING SYSTEM MARKUP CLERK evaluation, as she is asymptomatic without any significant deficits. Her motor function and gait are normal. She has no trouble swallowing. I encouraged her to follow up with Dr. Burroughs soon. She should come back to the ER immediately if she develops any other neurological deficits such as headaches , visual disturbance, or focal weakness. She verbalized understanding and agrees with the plan. I discussed the recommendations with Dr. López on 05/04/2019 at 08:30 a.m., who also agreed with the plan. [id number]/[facility] #: [id number] ESHA
== END 2019-05-03 18:57 | disposition home or self-care (01) ==
LOC: ED 11:50
DX: R20.2 Paresthesia of skin (principal); Z88.2 Allergy status to sulfonamides; Z86.718 Personal history of other venous thrombosis and embolism; R00.1 Bradycardia, unspecified; Q21.1 Atrial septal defect; Z86.73 Personal history of transient ischemic attack (TIA), and cerebral infarction without residual deficits; Z87.891 Personal history of nicotine dependence; Z79.01 Long term (current) use of anticoagulants; Z82.49 Family history of ischemic heart disease and other diseases of the circulatory system; Z83.2 Family history of diseases of the blood and blood-forming organs and certain disorders involving the immune mechanism
CPT/HCPCS: 36415; 70450; 70551; 80053; 80061; 82607; 83605; 84443; 84484; 84702; 85025; 85610; 85730; 86618; 86850; 86870; 86880; 86900; 86901; 99283